=== PATIENT | male | born 1955 | race American Indian/Alaskan Native ===

== ENCOUNTER 2019-02-20 13:13 | Inpatient (IN) | payer MEDICAID ==
[2019-02-20] MEDS ORDERED: FAMOTIDINE 20 MG/2 ML INJ IV ONE (14:23)
[2019-02-20] MEDS ORDERED: SODIUM CHLORIDE 0.9% 500 ML 500 ML IV ONE (14:23)
--- NOTE | 2019-02-20 14:25 | Emergency Department Report ---
ED General Adult HPI - General Chief complaint: Syncope Stated complaint: SYNCOPY Time Seen by Provider: 02/20/19 14:12 Source: patient, EMS ( EMS documentation not available at time of chart dictation ), RN notes reviewed Mode of arrival: Stretcher Limitations: No Limitations - History of Present Illness Initial comments: Patient is a 63-year-old gentleman. The patient follows with Dr. Solomon at the [facility]. His past medical history includes hypertension, high cholesterol. He is currently on Risperdal for "sleep." He presents to the ER with EMS with a complaint of nontraumatic chest pain and syncope/loss of consciousness. Patient states that he was in his usual state of health earlier on today, when he was walking, felt pressure in his chest, lightheaded, and lost consciousness. The chest pressure did not radiate to the back, arms or neck. There is no vomiting or diaphoresis. Patient is not sure if he's taken aspirin within the past 7 days. No recent cardiac risk stratification that the patient is aware of. He denies DVT or pulmonary embolus risk factors. He denies headache and neck pain. He believes he's been compliant with his medications. To the best of his recollection, he is not had any new or differen t medications initiated. -: Sudden Location: chest Severity scale (0 -10): 0 Consistency: now resolved Improves with: none Worsens with: none - Related Data Home Medications Medication Instructions Recorded Confirmed Last Taken Losartan [Cozaar] 25 mg PO QDAY 02/20/19 02/20/19 02/18/19 Pravastatin [Pravachol] 20 mg PO QDAY 02/20/19 02/20/19 02/18/19 Sertraline [Zoloft] 25 mg PO QDAY 02/20/19 02/20/19 02/18/19 Tamsulosin [Flomax] 0.4 mg PO QHS 02/20/19 02/20/19 02/18/19 hydroCHLOROthiazide [HCTZ] 25 mg PO QDAY 02/20/19 02/20/19 02/18/19 raNITIdine HCl [Acid Barber Instructor] 150 mg PO BID 02/20/19 02/20/19 02/18/19 risperiDONE [RisperDAL] 1 mg PO QHS 02/20/19 02/20/19 02/18/19 Allergies Allergy/AdvReac Type Severity Reaction Status Date / Time No Known Allergies Allergy Unverified 03/12/13 19:44 ED Review of Systems ROS: Stated complaint: SYNCOPY Other details as noted in HPI Constitutional: malaise. denies: fever Eyes: denies: eye discharge ENT: denies: congestion Respiratory: denies: wheezing Cardiovascular: chest pain, syncope Gastrointestinal: denies: abdominal pain, vomiting, hematemesis, melena, hematochezia Genitourinary: denies: dysuria Musculoskeletal: denies: back pain Skin: denies: lesions Neurological: denies: weakness Psychiatric: denies: depression Hematological/Lymphatic: denies: easy bleeding ED Past Medical Hx - Past Medical History Previous Medical History?: Yes Hx Hypertension: Yes Hx CVA: No Hx Heart Attack/AMI: No Hx Congestive Heart Failure: No Hx Diabetes: No Hx Deep Vein Thrombosis: No Hx Pulmonary Embolism: No Hx GERD: No Hx Liver Disease: No Hx Renal Disease: No Hx Sickle Cell Disease: No Hx Arthritis: No Hx Headaches / Migraines: No Hx Seizures: No Hx Kidney Stones: No Hx Psychiatric Treatment: No Hx Asthma: No Hx COPD: No Hx Tuberculosis: No Hx Dementia: No Hx HIV: No Additional medical history: high cholesterol - Surgical History Past Surgical History?: Yes Hx Coronary Stent: No Hx Open Heart Surgery: No Hx Pacemaker: No Hx Internal Defibrillator: No Hx Cholecystectomy: No Hx Appendectomy: No Hx Breast Surgery: No Additional Surgical History: Abscess removed - Social History Smoking Status: Current Every Day Smoker Substance Use Type: Alcohol - Medications Home Medications: Home Medications Medication Instructions Recorded Confirmed Last Taken Type Losartan [Cozaar] 25 mg PO QDAY 02/20/19 02/20/19 02/18/19 History Pravastatin [Pravachol] 20 mg PO QDAY 02/20/19 02/20/19 02/18/19 History Sertraline [Zoloft] 25 mg PO QDAY 02/20/19 02/20/19 02/18/19 History Tamsulosin [Flomax] 0.4 mg PO QHS 02/20/19 02/20/19 02/18/19 History hydroCHLOROthiazide [HCTZ] 25 mg PO QDAY 02/20/19 02/20/19 02/18/19 History raNITIdine HCl [Acid Barber Instructor] 150 mg PO BID 02/20/19 02/20/19 02/18/19 History risperiDONE [RisperDAL] 1 mg PO QHS 02/20/19 02/20/19 02/18/19 History ED Physical Exam - General Limitations: No Limitations General appearance: alert, in no apparent distress - Head Head exam: Present: atraumatic, normocephalic - Eye Eye exam: Present: normal appearance, PERRL, EOMI, other (visual acuity intact to finger counting, color perception, reading at a close distance). Absent: nystagmus - ENT ENT exam: Present: mucous membranes dry, normal external ear exam - Neck Neck exam: Present: normal inspection, full ROM. Absent: tenderness, meningismus - Respiratory Respiratory exam: Present: normal lung sounds bilaterally. Absent: respiratory distress - Cardiovascular Cardiovascular Exam: Present: regular rate, normal rhythm, normal heart sounds. Absent: bradycardia, tachycardia, irregular rhythm, systolic murmur, diastolic murmur, rubs, gallop - GI/Abdominal GI/Abdominal exam: Present: soft. Absent: distended, tenderness, guarding, rebound, rigid, pulsatile mass - Rectal Rectal exam: Present: deferred - Extremities Exam Extremities exam: Present: normal inspection, full ROM, other (2+ pulses noted in the bilateral upper and lower extremities. There is no palpable cord. negative Homans sign. Muscular compartments are soft. The pelvis is stable.). Absent: pedal edema, joint swelling, calf tenderness - Back Exam Back exam: Present: normal inspection. Absent: tenderness, CVA tenderness (R), CVA tenderness (L), paraspinal tenderness, vertebral tenderness - Neurological Exam Neurological exam: Present: alert (there is no past-pointing. There is normal gait. There is no pronator drift. There is normal [id number].), oriented X3, other (there is no facial droop. The tongue is midline. The extraocular movements are intact bilaterally. Speaking in full sentences. Minimal elevation of the base of the tongue. There is 5 out of 5 strength in the bilateral upper and lower extremities, and sensation is intact to light touch in the bilateral upper and lower extremities. Appropriate insight.) - Psychiatric Psychiatric exam: Present: normal affect, normal mood - Skin Skin exam: Present: warm, dry, intact, normal color. Absent: rash ED Course Vital Signs 02/20/19 14:00 Temperature 97.4 F L Pulse Rate 72 Respiratory 13 Rate Blood Pressure 123/76 [Right] O2 Sat by Pulse 100 Oximetry - Reevaluation(s) Reevaluation #1: 02/20/19 15:49 Differential diagnosis, including but not limited to: Orthostasis, vagal event, structural cardiac disease, acute coronary syndrome, arrhythmia, intracranial hemorrhage Assessment and plan: 63-year-old gentleman with hypertension, high cholesterol, atherosclerotic disease noted on noncontrast CT scan of the brain, with unprovoked chest pain and syncope/loss of consciousness. He is not tachycardic, tachypneic or hypoxic, he has no DVT or pulmonary embolus risk factors, and he is low risk by well's criteria for pulmonary embolism. We will check CT scan of the brain to exclude intracranial hemorrhage, by history we do not suspect subarachnoid hemorrhage, screening laboratory studies, and we will reassess. The patient has no midline cervical spine tenderness at this time. He is clinically sober at this time.Patient is clinically sober at this time. The cervical spine is cleared through nexus and cymraes c spine rule Reevaluation #2: 02/20/19 18:08 CT scan chest shows small pulmonary emboli. There is no evidence of right heart strain. Lovenox is ordered. Hospital physician to admit patient. Reevaluation #3: 02/20/19 18:09 Transaminitis is reviewed and appreciated. There is no right upper quadrant tenderness. We will defer to inpatient team to further evaluate this. Reevaluation #4: 02/20/19 18:09 heart score 3 Reevaluation #5: 02/20/19 18:12 And appears quite comfortable. He is not in any acute distress at this time. Discussed laboratory findings and CT scan findings with patient and family. He is amenable to hospitalization. No contraindications to systemic anticoagulation 02/20/19 19:42 Case presented to Hospital nurse practitioner Kwabena Verdugo, working in conjunction with Dr. Figueredo, patient to be admitted to the medical service. ED Medical Decision Making - Lab Data Result diagrams: 02/20/19 15:03 02/20/19 15:03 Vital Signs (72 hours) 02/20/19 14:00 Temperature 97.4 F L Pulse Rate 72 Respiratory 13 Rate Blood Pressure 123/76 [Right] O2 Sat by Pulse 100 Oximetry Lab Results 02/20/19 02/20/19 Range/Units 15:03 15:03 WBC 4.1 L (4.5-11.0) K/mm3 RBC 3.00 L (3.65-5.03) M/mm3 Hgb 10.6 L (11.8-15.2) gm/dl Hct 31.0 L (35.5-45.6) % MCV 103 H (84-94) fl MCH 35 H (28-32) pg MCHC 34 (32-34) % RDW 17.8 H (13.2-15.2) % Plt Count 213 (140-440) K/mm3 PT 19.4 H (12.2-14.9) Sec. INR 1.61 H (0.87-1.13) Vital Signs 02/20/19 14:00 Temperature 97.4 F L Pulse Rate 72 Respiratory 13 Rate Blood Pressure 123/76 [Right] O2 Sat by Pulse 100 Oximetry Lab Results 02/20/19 02/20/19 02/20/19 Range/Units 15:03 15:03 15:03 WBC 4.1 L (4.5-11.0) K/mm3 RBC 3.00 L (3.65-5.03) M/mm3 Hgb 10.6 L (11.8-15.2) gm/dl Hct 31.0 L (35.5-45.6) % MCV 103 H (84-94) fl MCH 35 H (28-32) pg MCHC 34 (32-34) % RDW 17.8 H (13.2-15.2) % Plt Count 213 (140-440) K/mm3 PT 19.4 H (12.2-14.9) Sec. INR 1.61 H (0.87-1.13) Sodium 138 (137-145) mmol/L Potassium 4.7 (3.6-5.0) mmol/L Chloride 99.0 (98-107) mmol/L Carbon Dioxide 26 (22-30) mmol/L Anion Gap 18 mmol/L BUN 14 (9-20) mg/dL Creatinine 0.8 (0.8-1.5) mg/dL Estimated GFR > 60 ml/min BUN/Creatinine Ratio 18 % Glucose 118 H (75-100) mg/dL Calcium 8.1 L (8.4-10.2) mg/dL Magnesium 1.60 L (1.7-2.3) mg/dL Total Bilirubin 1.20 (0.1-1.2) mg/dL AST 257 H (5-40) units/L ALT 100 H (7-56) units/L Alkaline Phosphatase 121 (35-129) units/L Total Creatine Kinase 158 (55-170) units/L Troponin T < 0.010 (0.00-0.029) ng/mL Total Protein 5.2 L (6.3-8.2) g/dL Albumin 3.0 L (3.9-5) g/dL Albumin/Globulin Ratio 1.4 % TSH (0.270-4.200) mlU/mL Salicylates (2.8-20.0) mg/dL Acetaminophen (10.0-30.0) ug/mL Plasma/Serum Alcohol (0-0.07) % 02/20/19 02/20/19 02/20/19 Range/Units 15:03 15:03 15:03 WBC (4.5-11.0) K/mm3 RBC (3.65-5.03) M/mm3 Hgb (11.8-15.2) gm/dl Hct (35.5-45.6) % MCV (84-94) fl MCH (28-32) pg MCHC (32-34) % RDW (13.2-15.2) % Plt Count (140-440) K/mm3 PT (12.2-14.9) Sec. INR (0.87-1.13) Sodium (137-145) mmol/L Potassium (3.6-5.0) mmol/L Chloride (98-107) mmol/L Carbon Dioxide (22-30) mmol/L Anion Gap mmol/L BUN (9-20) mg/dL Creatinine (0.8-1.5) mg/dL Estimated GFR ml/min BUN/Creatinine Ratio % Glucose (75-100) mg/dL Calcium (8.4-10.2) mg/dL Magnesium (1.7-2.3) mg/dL Total Bilirubin (0.1-1.2) mg/dL AST (5-40) units/L ALT (7-56) units/L Alkaline Phosphatase (35-129) units/L Total Creatine Kinase (55-170) units/L Troponin T (0.00-0.029) ng/mL Total Protein (6.3-8.2) g/dL Albumin (3.9-5) g/dL Albumin/Globulin Ratio % TSH 0.546 (0.270-4.200) mlU/mL Salicylates 1.5 L (2.8-20.0) mg/dL Acetaminophen < 5.0 L (10.0-30.0) ug/mL Plasma/Serum Alcohol (0-0.07) % 02/20/19 Range/Units 15:03 WBC (4.5-11.0) K/mm3 RBC (3.65-5.03) M/mm3 Hgb (11.8-15.2) gm/dl Hct (35.5-45.6) % MCV (84-94) fl MCH (28-32) pg MCHC (32-34) % RDW (13.2-15.2) % Plt Count (140-440) K/mm3 PT (12.2-14.9) Sec. INR (0.87-1.13) Sodium (137-145) mmol/L Potassium (3.6-5.0) mmol/L Chloride (98-107) mmol/L Carbon Dioxide (22-30) mmol/L Anion Gap mmol/L BUN (9-20) mg/dL Creatinine (0.8-1.5) mg/dL Estimated GFR ml/min BUN/Creatinine Ratio % Glucose (75-100) mg/dL Calcium (8.4-10.2) mg/dL Magnesium (1.7-2.3) mg/dL Total Bilirubin (0.1-1.2) mg/dL AST (5-40) units/L ALT (7-56) units/L Alkaline Phosphatase (35-129) units/L Total Creatine Kinase (55-170) units/L Troponin T (0.00-0.029) ng/mL Total Protein (6.3-8.2) g/dL Albumin (3.9-5) g/dL Albumin/Globulin Ratio % TSH (0.270-4.200) mlU/mL Salicylates (2.8-20.0) mg/dL Acetaminophen (10.0-30.0) ug/mL Plasma/Serum Alcohol 0.04 (0-0.07) % - EKG Data -: EKG Interpreted by Nv EKG shows normal: sinus rhythm Rate: normal - EKG Data 02/20/19 15:50 There is no prior EKG available for comparison. The EKG shows a sinus rhythm, 74 bpm, normal axis, QTC is 426 ms, there is left ventricular hypertrophy, there is no ST elevation myocardial infarction. There is low voltage in the inferior leads. There is no prior for comparison, the EKG is not consistent with STEMI - Radiology Data Radiology results: report reviewed, image reviewed Print Report Referring Physician: JEAN-CLAUDE ALEXANDRE Patient Name: ROB ENGLISH Date of : 1955 Sex: Male Report Date: 2019-02-20 Report Status: Finalized Findings [facility] [address] [place] [address] Cat Scan Report Signed Patient: ROB ENGLISH MR#: [id number] : 1955 Acct:[id number] Age/Sex: 63 / M ADM Date: 02/20/19 Loc: ED Attending Dr: Ordering Physician: JEAN-CLAUDE ALEXANDRE MD Date of Service: 02/20/19 Procedure(s): CT head/brain wo con Accession Number(s): [id number] cc: JEAN-CLAUDE ALEXANDRE MD CT HEAD WITHOUT CONTRAST INDICATION / CLINICAL INFORMATION: syncope. TECHNIQUE: All CT scans at this location are performed using CT dose reduction for ALARA by means of automated exposure control. COMPARISON: None available. FINDINGS: HEMORRHAGE: No evidence of intracranial hemorrhage or extra-axial fluid collection. EXTRA-AXIAL SPACES: Cortical sulci, sylvian fissures and basilar cisterns have an unremarkable appearance. VENTRICULAR SYSTEM: The ventricular system is of normal size and configuration. CEREBRAL PARENCHYMA: Mild deep and periventricular white matter lucency is noted likely a manifestation of early microvascular ischemic change. Physiological calcifications are seen in the left basal ganglia region. MIDLINE SHIFT OR HERNIATION: There is no mass effect. CEREBELLUM / BRAINSTEM: Brainstem and cerebellum have an unremarkable appearance. INTRACRANIAL VESSELS: Moderately calcified atherosclerotic plaque is seen along the course of the cavernous segments of both internal carotid arteries. This extends up into the supraclinoid region. ORBITS: visualized portions of the orbits have an unremarkable appearance. SOFT TISSUES of HEAD: No significant abnormality. CALVARIUM: Evaluation of bone windows reveals no abnormalities. PARANASAL SINUSES / MASTOID AIR CELLS: Paranasal sinuses are free from inflammatory mucosal disease. Mastoid air cells are normally pneumatized. IMPRESSION: 1. Calcified atherosclerotic plaque is demonstrated along the cavernous segments of both internal carotid arteries. 2. Mild white matter lucency likely secondary to microvascular ischemic change. 3. No acute intracranial abnormality identified on head CT without contrast. Signer Name: Mohit Leahy MD Signed: 02/20/2019 3:19 PM Workstation Name: [id number] Transcribed By: Dictated By: Mohit Leahy MD Electronically Authenticated By: Mohit Leahy MD Signed Date/Time: 02/20/19 1519 Print Report Referring Physician: JEAN-CLAUDE ALEXANDRE Patient Name: ROB ENGLISH Date of : 1955 Sex: Male Report Date: 2019-02-20 Report Status: Finalized Findings [address] [address] XRay Report Signed Patient: ROB ENGLISH MR#: [id number] : 1955 Acct:[id number] Age/Sex: 63 / M ADM Date: 02/20/19 Loc: ED Attending Dr: Ordering Physician: JEAN-CLAUDE ALEXANDRE MD Date of Service: 02/20/19 Procedure(s): XR chest 1V ap Accession Number(s): [id number] cc: JEAN-CLAUDE ALEXANDRE MD Fluoro Time In Minutes: CHEST 1 VIEW 02/20/2019 2:23 PM INDICATION / CLINICAL INFORMATION: Chest pain. COMPARISON: 2 views of the chest from 05/31/2014. FINDINGS: SUPPORT DEVICES: None. HEART / MEDIASTINUM: No significant abnormality. LUNGS / PLEURA: No significant pulmonary or pleural abnormality. No pneumothorax. ADDITIONAL FINDINGS: No significant additional findings. IMPRESSION: 1. No acute abnormality of the chest. Signer Name: Sriram Mccarthy MD Signed: 02/20/2019 3:35 PM Workstation Name: [id number] Transcribed By: [place] Dictated By: Sriram Mccarthy MD Electronically Authenticated By: Sriram Mccarthy MD Signed Date/Time: 02/20/19 1535 DD/ 1535 Print Report Referring Physician: JEAN-CLAUDE ALEXANDRE Patient Name: ROB ENGLISH Date of : 1955 Sex: Male Report Date: 2019-02-20 Report Status: Finalized Findings [facility] [address] [place] [address] Cat Scan Report Signed Patient: ROB ENGLISH MR#: [id number] : 1955 Acct:[id number] Age/Sex: 63 / M ADM Date: 02/20/19 Loc: ED Attending Dr: Ordering Physician: JEAN-CLAUDE ALEXANDRE MD Date of Service: 02/20/19 Procedure(s): CT angio chest Accession Number(s): [id number] cc: JEAN-CLAUDE ALEXANDRE MD CT angio chest INDICATION / CLINICAL INFORMATION: cp syncope + d dimer. TECHNIQUE: Axial CT images were obtained after injection of Omnipaque 350, 80 cc IV contrast using CTA protocol. 3 plane MIP / 3D reconstructions were produced. All CT scans at this location are performed using CT dose reduction for ALARA by means of automated exposure control. COMPARISON: None available. FINDINGS: Small peripheral bilateral pulmonary emboli at the lower lobes a credit representative finding is series 3, image 271 at the left lower lobe. Negative for aneurysm or dissection. Mild atelectasis versus infarct is seen dependently at the right lower lobe. Negative for suspicious lung mass, significant infiltrate or pleural fluid. No mediastinal mass or adenopathy. Imaging of the upper abdomen demonstrates a fatty liver. IMPRESSION: 1. Small bilateral pulmonary emboli. 2. Mild atelectasis versus infarct right lower lobe. CRITICAL RESULT: Time of Discovery: 5:04 PM. Time of Communication: 506 PM. Licensed Practitioner Receiving Report: Dr. Alexandre Read Back Performed: Yes. Signer Name: Martell Madera MD Signed: 02/20/2019 6:11 PM Workstation Name: [id number] Transcribed By: ES Dictated By: Martell Madera MD Electronically Authenticated By: Martell Madera MD Signed Date/Time: 02/20/19 6851 DD/ 484 Critical care attestation.: If time is entered above; I have spent that time in minutes in the direct care of this critically ill patient, excluding procedure time. ED Disposition Clinical Impression: Acute chest pain, Syncope, Acute pulmonary embolism Disposition: OP ADMIT IP TO THIS HOSP Is pt being admited?: Yes Does the pt Need Aspirin: No Condition: Stable Instructions: Chest Pain (ED), Syncope (ED) Referrals: PRIMARY CARE, [Primary Care Provider] - 3-5 Days
--- NOTE | 2019-02-20 15:24 | Cat Scan Report ---
CT HEAD WITHOUT CONTRAST INDICATION / CLINICAL INFORMATION: syncope. TECHNIQUE: All CT scans at this location are performed using CT dose reduction for ALARA by means of automated e xposure control. COMPARISON: None available. FINDINGS: HEMORRHAGE: No evidence of intracranial hemorrhage or extra-axial fluid collection. EXTRA-AXIAL SPACES: Cortical sulci, sylvian fissures and basilar cisterns have an unremarkable appear ance. VENTRICULAR SYSTEM: The ventricular system is of normal size and configuration. CEREBRAL PARENCHYMA: Mild deep and periventricular white matter lucency is noted likely a manifestati on of early microvascular ischemic change. Physiological calcifications are seen in the left basal ga nglia region. MIDLINE SHIFT OR HERNIATION: There is no mass effect. CEREBELLUM / BRAINSTEM: Brainstem and cerebellum have an unremarkable appearance. INTRACRANIAL VESSELS: Moderately calcified atherosclerotic plaque is seen along the course of the cav ernous segments of both internal carotid arteries. This extends up into the supraclinoid region. ORBITS: visualized portions of the orbits have an unremarkable appearance. SOFT TISSUES of HEAD: No significant abnormality. CALVARIUM: Evaluation of bone windows reveals no abnormalities. PARANASAL SINUSES / MASTOID AIR CELLS: Paranasal sinuses are free from inflammatory mucosal disease. Mastoid air cells are normally pneumatized. IMPRESSION: 1. Calcified atherosclerotic plaque is demonstrated along the cavernous segments of both internal car otid arteries. 2. Mild white matter lucency likely secondary to microvascular ischemic change. 3. No acute intracranial abnormality identified on head CT without contrast. Signer Name: Mohit Leahy MD Signed: 02/20/2019 3:19 PM Workstation Name: [id number]
[2019-02-20 15:34] LABS: Hemoglobin 10.6 gm/dl (11.8-15.2); Mean Corpuscular HGB Conc 34 % (32-34); Mean Corpuscular Volume 103 fl (84-94); Platelet Count 213 K/mm3 (140-440); Red Cell Distribution Width 17.8 % (13.2-15.2)
--- NOTE | 2019-02-20 15:39 | XRay Report ---
CHEST 1 VIEW 02/20/2019 2:23 PM INDICATION / CLINICAL INFORMATION: Chest pain. COMPARISON: 2 views of the chest from 05/31/2014. FINDINGS: SUPPORT DEVICES: None. HEART / MEDIASTINUM: No significant abnormality. LUNGS / PLEURA: No significant pulmonary or pleural abnormality. No pneumothorax. ADDITIONAL FINDINGS: No significant additional findings. IMPRESSION: 1. No acute abnormality of the chest. Signer Name: Sriram Mccarthy MD Signed: 02/20/2019 3:35 PM Workstation Name: [id number]
[2019-02-20 15:47] LABS: INR 1.61 (0.87-1.13)
[2019-02-20 15:58] LABS: Alanine Aminotransferase 100 units/L (7-56); BUN/Creatinine Ratio 18; Blood Urea Nitrogen 14 mg/dL (9-20); Calcium 8.1 mg/dL (8.4-10.2); Hemolysis Index 10
[2019-02-20] MEDS ORDERED: MAGNESIUM SULFATE 2 GM/50 ML BAG IV ONE (16:16)
[2019-02-20 18:00] LABS: Bilirubin,Urine NEG (Negative); Blood,Urine NEG (Negative); Color,Urine Yellow (Yellow); Protein,Urine <15 mg/dL mg/dL (Negative); RBC,Urine < 1.0 /HPF (0.0-6.0)
[2019-02-20] MEDS ORDERED: CALCIUM GLUCONATE 2,000 MG in SODIUM CHLORIDE 0.9% 100 ML IV ONE (18:00)
[2019-02-20] MEDS ORDERED: ENOXAPARIN 100 MG/1 ML INJ SUB-Q STA (18:07)
[2019-02-20 18:09] LABS: Amphetamine Screen,Urine PRESUMPTIVE NEGATIVE; Benzodiazepines Screen,Urine PRESUMPTIVE NEGATIVE; Cannabinoid Screen,Urine PRESUMPTIVE NEGATIVE; Cocaine Screen,Urine PRESUMPTIVE NEGATIVE; Methadone Screen,Urine PRESUMPTIVE NEGATIVE; Opiate Screen,Urine PRESUMPTIVE NEGATIVE
--- NOTE | 2019-02-20 18:16 | Cat Scan Report ---
CT angio chest INDICATION / CLINICAL INFORMATION: cp syncope + d dimer. TECHNIQUE: Axial CT images were obtained after injection of Omnipaque 350, 80 cc IV contrast using CTA protocol. 3 plane MIP / 3D reconstructions were produced. All CT scans at this location are performed using CT dose reduction for ALARA by means of automated exposure control. COMPARISON: None available. 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 Negative for aneurysm or dissection. Mild atelectasis versus infarc t is seen dependently at the right lower lobe. Negative for suspicious lung mass, significant infiltr ate or pleural fluid. No mediastinal mass or adenopathy. Imaging of the upper abdomen demonstrates a fatty liver. IMPRESSION: 1. Small bilateral pulmonary emboli. 2. Mild atelectasis versus infarct right lower lobe. CRITICAL RESULT: Time of Discovery: 5:04 PM. Time of Communication: 506 PM. Licensed Practitioner Receiving Report: Dr. Alexandre Read Back Performed: Yes. Signer Name: Martell Madera MD Signed: 02/20/2019 6:11 PM Workstation Name: [id number]
[2019-02-20] MEDS ORDERED: ONDANSETRON 4 MG/2 ML INJ IV PRN (19:47)
[2019-02-20] MEDS ORDERED: ACETAMINOPHEN 325 MG TAB PO PRN (19:47)
[2019-02-20] MEDS ORDERED: ALBUTEROL 2.5 MG/3 ML NEBU IH PRN (19:47)
[2019-02-20] MEDS ORDERED: MORPHINE 2 MG/1 ML INJ IV PRN (19:51)
[2019-02-20] MEDS ORDERED: LORazepam 2 MG TAB PO PRN ×2 (20:00)
[2019-02-20 21:00] LABS: Chol/HDL Ratio 6.38 %; HDL Cholesterol 31 mg/dL (40-59); LDL Cholesterol,Direct TNR mg/dL (50-130)
--- NOTE | 2019-02-20 21:44 | History and Physical Report ---
<TAWANNA CAMPBELL - Last Filed: 02/20/19 21:39> History of Present Illness Date of examination: 02/20/19 Date of admission: 02/20/2019 Chief complaint: chest and syncope History of present illness: 63-year-old -[place] male who is an ongoing smoker with history of hypertension, HLD, and BPH presents to [facility] ED via EMS with complaints of chest pain and syncopal episode. Pt states that earlier today while walking he felt a sharp pain in the center of his chest, felt lightheaded followed by lost consciousness. EMS was called. Pt regained consciousness before EMS's arrival. He describes his chest pain and sharp and rates it 7/10. The pain was non- radiating. The pain has since resolved. He denies diaphoresis, nausea, emesis, head injury/trauma. He denies cardiac history or previous cardiac work up. Past History Past Medical History: hypertension, hyperlipidemia Past Surgical History: Other (Abscess removed) Social history: lives with family, smoking (current everday smoker), alcohol abuse Family history: no significant family history Medications and Allergies Allergies Allergy/AdvReac Type Severity Reaction Status Date / Time No Known Allergies Allergy Unverified 03/12/13 19:44 Home Medications Medication Instructions Recorded Confirmed Last Taken Type Losartan [Cozaar] 25 mg PO QDAY 02/20/19 02/20/19 02/18/19 History Pravastatin [Pravachol] 20 mg PO QDAY 02/20/19 02/20/19 02/18/19 History Sertraline [Zoloft] 25 mg PO QDAY 02/20/19 02/20/19 02/18/19 History Tamsulosin [Flomax] 0.4 mg PO QHS 02/20/19 02/20/19 02/18/19 History hydroCHLOROthiazide [HCTZ] 25 mg PO QDAY 02/20/19 02/20/19 02/18/19 History raNITIdine HCl [Acid Track Oiler] 150 mg PO BID 02/20/19 02/20/19 02/18/19 History risperiDONE [RisperDAL] 1 mg PO QHS 02/20/19 02/20/19 02/18/19 History Active Meds: Active Medications Acetaminophen (Tylenol) 650 mg PO Q4H PRN PRN Reason: Pain MILD(1-3)/Fever >100.5/FLEMING Albuterol (Proventil) 2.5 mg IH Q3HRT PRN PRN Reason: Shortness Of Breath Atorvastatin Calcium (Lipitor) 40 mg PO QHS [facility] Docusate Sodium (Colace) 100 mg PO BID [facility] Enoxaparin Sodium (Enoxaparin) 60 mg SUB-Q Q12HR [facility] Folic Acid (Folvite) 1 mg PO QDAY [facility] Hydrochlorothiazide (Hctz) 25 mg PO QDAY [facility] Lorazepam (Ativan) 2 mg PO Q1H PRN PRN Reason: CIWA-Ar 8-15 Lorazepam (Ativan) 4 mg PO Q1H PRN PRN Reason: CIWA-Ar 16-25 Losartan Potassium (Cozaar) 25 mg PO QDAY [facility] Morphine Sulfate (Morphine) 2 mg IV Q4H PRN PRN Reason: Pain, Moderate (4-6) Nicotine (Habitrol) 14 mg TD QDAY [facility] Ondansetron HCl (Zofran) 4 mg IV Q8H PRN PRN Reason: Nausea And Vomiting Risperidone (Risperdal) 1 mg PO QHS [facility] Sertraline HCl (Zoloft) 25 mg PO QDAY [facility] Sodium Chloride (Sodium Chloride Flush Syringe 10 Ml) 10 ml IV BID [facility] Sodium Chloride (Sodium Chloride Flush Syringe 10 Ml) 10 ml IV PRN PRN PRN Reason: LINE FLUSH Tamsulosin HCl (Flomax) 0.4 mg PO QHS [facility] Thiamine HCl (Vitamin B-1) 100 mg PO QDAY [facility] Review of Systems All systems: negative Cardiovascular: chest pain, shortness of breath Neurological: syncope Exam - Physical Exam Narrative exam: General appearance: Present: No acute distress, alert and oriented x3,well developed, , older adult male - EENT Eyes: Present: PERRL, EOM intact ENT: hearing intact - Neck Neck: Present: supple, normal ROM - Respiratory Respiratory effort: Non-labored Respiratory: bilateral: CTA with diminished bases bilaterally - Cardiovascular Heart rate:74 (bpm) Rhythm:SR Heart Sounds: Present: S1, S2. - Extremities Extremities: no ischemia, pulses intact - Peripheral Assessment Peripheral Pulses: within normal limits - Abdominal General gastrointestinal: soft, non-tender, normal bowel sounds, - Integumentary Integumentary: Present: warm, dry - Musculoskeletal Musculoskeletal: able to move all extremities -Neurological Neurological: CN II-XII grossly intact - Psychiatric Psychiatric: cooperative - Constitutional Vitals: Temp Pulse Resp BP Pulse Ox 97.4 F L 76 14 185/96 100 02/20/19 14:00 02/20/19 21:00 02/20/19 21:21 02/20/19 21:21 02/20/19 21:21 Results - Labs CBC & Chem 7: 02/20/19 15:03 02/20/19 15:03 Labs: Laboratory Last Values WBC 4.1 K/mm3 (4.5-11.0) L 02/20/19 15:03 RBC 3.00 M/mm3 (3.65-5.03) L 02/20/19 15:03 Hgb 10.6 gm/dl (11.8-15.2) L 02/20/19 15:03 Hct 31.0 % (35.5-45.6) L 02/20/19 15:03 MCV 103 fl (84-94) H 02/20/19 15:03 MCH 35 pg (28-32) H 02/20/19 15:03 MCHC 34 % (32-34) 02/20/19 15:03 RDW 17.8 % (13.2-15.2) H 02/20/19 15:03 Plt Count 213 K/mm3 (140-440) 02/20/19 15:03 PT 19.4 Sec. (12.2-14.9) H 02/20/19 15:03 INR 1.61 (0.87-1.13) H 02/20/19 15:03 D-Dimer 7327.05 ng/mlDDU (0-234) H 02/20/19 15:03 Sodium 138 mmol/L (137-145) 02/20/19 15:03 Potassium 4.7 mmol/L (3.6-5.0) 02/20/19 15:03 Chloride 99.0 mmol/L (98-107) 02/20/19 15:03 Carbon Dioxide 26 mmol/L (22-30) 02/20/19 15:03 Anion Gap 18 mmol/L 02/20/19 15:03 BUN 14 mg/dL (9-20) 02/20/19 15:03 Creatinine 0.8 mg/dL (0.8-1.5) 02/20/19 15:03 Estimated GFR > 60 ml/min 02/20/19 15:03 BUN/Creatinine Ratio 18 % 02/20/19 15:03 Glucose 118 mg/dL (75-100) H 02/20/19 15:03 Calcium 8.1 mg/dL (8.4-10.2) L 02/20/19 15:03 Magnesium 1.60 mg/dL (1.7-2.3) L 02/20/19 15:03 Total Bilirubin 1.20 mg/dL (0.1-1.2) 02/20/19 15:03 AST 257 units/L (5-40) H 02/20/19 15:03 ALT 100 units/L (7-56) H 02/20/19 15:03 Alkaline Phosphatase 121 units/L (35-129) 02/20/19 15:03 Total Creatine Kinase 158 units/L (55-170) 02/20/19 15:03 Troponin T < 0.010 ng/mL (0.00-0.029) 02/20/19 18:08 Total Protein 5.2 g/dL (6.3-8.2) L 02/20/19 15:03 Albumin 3.0 g/dL (3.9-5) L 02/20/19 15:03 Albumin/Globulin Ratio 1.4 % 02/20/19 15:03 Triglycerides 549 mg/dL (2-149) H 02/20/19 20:18 Cholesterol 198 mg/dL (50-199) 02/20/19 20:18 LDL Cholesterol Direct TNR 02/20/19 20:18 HDL Cholesterol 31 mg/dL (40-59) L 02/20/19 20:18 Cholesterol/HDL Ratio 6.38 % 02/20/19 20:18 Lipase 21 units/L (13-60) 02/20/19 20:18 TSH 0.546 mlU/mL (0.270-4.200) 02/20/19 15:03 Urine Color Yellow (Yellow) 02/20/19 17:17 Urine Turbidity Clear (Clear) 02/20/19 17:17 Urine pH 6.0 (5.0-7.0) 02/20/19 17:17 Ur Specific [place] 1.016 (1.003-1.030) 02/20/19 17:17 Urine Protein <15 mg/dl mg/dL (Negative) 02/20/19 17:17 Urine Glucose (UA) Neg mg/dL (Negative) 02/20/19 17:17 Urine Ketones Neg mg/dL (Negative) 02/20/19 17:17 Urine Blood Neg (Negative) 02/20/19 17:17 Urine Nitrite Neg (Negative) 02/20/19 17:17 Urine Bilirubin Neg (Negative) 02/20/19 17:17 Urine Urobilinogen 4.0 mg/dL (<2.0) 02/20/19 17:17 Ur Leukocyte Esterase Neg (Negative) 02/20/19 17:17 Urine WBC (Auto) 1.0 /HPF (0.0-6.0) 02/20/19 17:17 Urine RBC (Auto) < 1.0 /HPF (0.0-6.0) 02/20/19 17:17 U Epithel Cells (Auto) < 1.0 /HPF (0-13.0) 02/20/19 17:17 Salicylates 1.5 mg/dL (2.8-20.0) L 02/20/19 15:03 Urine Opiates Screen Presumptive negative 02/20/19 17:17 Urine Methadone Screen Presumptive negative 02/20/19 17:17 Acetaminophen < 5.0 ug/mL (10.0-30.0) L 02/20/19 15:03 Ur Barbiturates Screen Presumptive negative 02/20/19 17:17 Ur Phencyclidine Scrn Presumptive negative 02/20/19 17:17 Ur Amphetamines Screen Presumptive negative 02/20/19 17:17 U Benzodiazepines Scrn Presumptive negative 02/20/19 17:17 Urine Cocaine Screen Presumptive negative 02/20/19 17:17 U Marijuana (THC) Screen Presumptive negative 02/20/19 17:17 Drugs of Abuse Note Disclamer 02/20/19 17:17 Plasma/Serum Alcohol 0.04 % (0-0.07) 02/20/19 15:03 - Imaging and Cardiology Imaging and Cardiology: CT angio Chest: FINDINGS: Small peripheral bilateral pulmonary emboli at the lower lobes a technical sales representative finding is series 3, image 271 at the left lower lobe. Negative for aneurysm or dissection. Mild atelectasis versus infarct is seen dependently at the right lower lobe. Negative for suspicious lung mass, significant infiltrate or pleural fluid. No mediastinal mass or adenopathy. Imaging of the upper abdomen demonstrates a fatty liver. IMPRESSION: 1. Small bilateral pulmonary emboli. 2. Mild atelectasis versus infarct right lower lobe. CT Head: FINDINGS: HEMORRHAGE: No evidence of intracranial hemorrhage or extra-axial fluid collection. EXTRA-AXIAL SPACES: Cortical sulci, sylvian fissures and basilar cisterns have an unremarkable appearance. VENTRICULAR SYSTEM: The ventricular system is of normal size and configuration. CEREBRAL PARENCHYMA: Mild deep and periventricular white matter lucency is noted likely a manifestation of early microvascular ischemic change. Physiological calci fications are seen in the left basal ganglia region. MIDLINE SHIFT OR HERNIATION: There is no mass effect. CEREBELLUM / BRAINSTEM: Brainstem and cerebellum have an unremarkable appearance. INTRACRANIAL VESSELS: Moderately calcified atherosclerotic plaque is seen along the course of the cavernous segments of both internal carotid arteries. This extends up into the supraclinoid region. ORBITS: visualized portions of the orbits have an unremarkable appearance. SOFT TISSUES of HEAD: No significant abnormality. CALVARIUM: Evaluation of bone windows reveals no abnormalities. PARANASAL SINUSES / MASTOID AIR CELLS: Paranasal sinuses are free from inflammatory mucosal disease. Mastoid air cells are normally pneumatized. IMPRESSION: 1. Calcified atherosclerotic plaque is demonstrated along the cavernous segments of both internal carotid arteries. 2. Mild white matter lucency likely secondary to microvascular ischemic change. 3. No acute intracranial abnormality identified on head CT without contrast. CXR: FINDINGS: SUPPORT DEVICES: None. HEART / MEDIASTINUM: No significant abnormality. LUNGS / PLEURA: No significant pulmonary or pleural abnormality. No pneumothorax . ADDITIONAL FINDINGS: No significant additional findings. IMPRESSION: 1. No acute abnormality of the chest. Assessment and Plan Assessment and plan: 63-year-old -[place] male who is an ongoing smoker with history of hypertension, HLD, and BPH presents to [facility] ED via EMS with complaints of chest pain and syncopal episode. Small Peripheral bilateral Pulmonary Emboli -At the lower lobes; Seen on today's CT angio Chest -D-Dimer elevated at 7327 -Start on Lovenox 1mg/kg BID -Hematology consulted -Pulmonary consulted -Cardiology consulted Acute atypical Chest Pain -Likely secondary to bilateral PE -Initiate chest pain protocol -Continuous telemetry monitoring -Continue supportive care -Pain mgmt -Troponin neg x2 -EKG unrevealing for acute ischemic abnormalities -CXR negative -On Statin -Echo pending -Cardiology consulted Syncope -Syncopal episode x1 - CT head showed: 1. Calcified atherosclerotic plaque is demonstrated along the cavernous segments of both internal carotid arteries. 2. Mild white matter lucency likely secondary to microvascular ischemic change. -Neuro checks -Neurology consulted Anemia -Hemoglobin on admission 10.6 -No s/s of active bleeding -Continue to monitor hemoglobin -Transfuse as needed Transaminitis -Continue to monitor for now -May consider GI consult if no improvement EtOH Abuse -Last drink 3 days ago -Serum alcohol 0.04 -Initiate CIWA protocol -Start Thiamine and Folic Acid -Counseled for cessation abuse Tobacco abuse -Current every day smoker -Counseled for cessation -Nicotine patch when necessary Mild to moderate malnutrition -Albumin 3.0 -BMI 16.5 -Start dietary supplements -Dietitian consulted DVT PPX -on Lovenox Advance Directives: No VTE prophylaxis?: Chemical Plan of care discussed with patient/family: Yes <BARBARA RIVAS - Last Filed: 02/21/19 04:38> History of Present Illness Date of admission: 02/20/19 19:47 Medications and Allergies Active Meds: Active Medications Acetaminophen (Tylenol) 650 mg PO Q4H PRN PRN Reason: Pain MILD(1-3)/Fever >100.5/FLEMING Albuterol (Proventil) 2.5 mg IH Q3HRT PRN PRN Reason: Shortness Of Breath Atorvastatin Calcium (Lipitor) 40 mg PO QHS [facility] Last Admin: 02/20/19 23:02 Dose: 40 mg Documented by: Docusate Sodium (Colace) 100 mg PO BID [facility] Last Admin: 02/20/19 23:02 Dose: 100 mg Documented by: Enoxaparin Sodium (Enoxaparin) 60 mg SUB-Q Q12HR [facility] Folic Acid (Folvite) 1 mg PO QDAY [facility] Hydrochlorothiazide (Hctz) 25 mg PO QDAY [facility] Lorazepam (Ativan) 2 mg PO Q1H PRN PRN Reason: CIWA-Ar 8-15 Lorazepam (Ativan) 4 mg PO Q1H PRN PRN Reason: CIWA-Ar 16-25 Losartan Potassium (Cozaar) 25 mg PO QDAY [facility] Morphine Sulfate (Morphine) 2 mg IV Q4H PRN PRN Reason: Pain, Moderate (4-6) Nicotine (Habitrol) 14 mg TD QDAY [facility] Last Admin: 02/20/19 23:02 Dose: 14 mg Documented by: Ondansetron HCl (Zofran) 4 mg IV Q8H PRN PRN Reason: Nausea And Vomiting Risperidone (Risperdal) 1 mg PO QHS [facility] Last Admin: 02/20/19 23:02 Dose: 1 mg Documented by: Sertraline HCl (Zoloft) 25 mg PO QDAY [facility] Sodium Chloride (Sodium Chloride Flush Syringe 10 Ml) 10 ml IV BID [facility] Last Admin: 02/20/19 23:11 Dose: 10 ml Documented by: Sodium Chloride (Sodium Chloride Flush Syringe 10 Ml) 10 ml IV PRN PRN PRN Reason: LINE FLUSH Tamsulosin HCl (Flomax) 0.4 mg PO QHS [facility] Last Admin: 02/20/19 23:01 Dose: 0.4 mg Documented by: Thiamine HCl (Vitamin B-1) 100 mg PO QDAY [facility] Exam - Constitutional Vitals: Temp Pulse Resp BP Pulse Ox 98.1 F 78 16 156/98 96 02/20/19 22:47 02/20/19 22:47 02/20/19 22:47 02/20/19 22:47 02/20/19 22:47 Results - Labs CBC & Chem 7: 02/20/19 15:03 02/20/19 15:03 Labs: Laboratory Last Values WBC 4.1 K/mm3 (4.5-11.0) L 02/20/19 15:03 RBC 3.00 M/mm3 (3.65-5.03) L 02/20/19 15:03 Hgb 10.6 gm/dl (11.8-15.2) L 02/20/19 15:03 Hct 31.0 % (35.5-45.6) L 02/20/19 15:03 MCV 103 fl (84-94) H 02/20/19 15:03 MCH 35 pg (28-32) H 02/20/19 15:03 MCHC 34 % (32-34) 02/20/19 15:03 RDW 17.8 % (13.2-15.2) H 02/20/19 15:03 Plt Count 213 K/mm3 (140-440) 02/20/19 15:03 PT 19.4 Sec. (12.2-14.9) H 02/20/19 15:03 INR 1.61 (0.87-1.13) H 02/20/19 15:03 D-Dimer 7327.05 ng/mlDDU (0-234) H 02/20/19 15:03 Sodium 138 mmol/L (137-145) 02/20/19 15:03 Potassium 4.7 mmol/L (3.6-5.0) 02/20/19 15:03 Chloride 99.0 mmol/L (98-107) 02/20/19 15:03 Carbon Dioxide 26 mmol/L (22-30) 02/20/19 15:03 Anion Gap 18 mmol/L 02/20/19 15:03 BUN 14 mg/dL (9-20) 02/20/19 15:03 Creatinine 0.8 mg/dL (0.8-1.5) 02/20/19 15:03 Estimated GFR > 60 ml/min 02/20/19 15:03 BUN/Creatinine Ratio 18 % 02/20/19 15:03 Glucose 118 mg/dL (75-100) H 02/20/19 15:03 Calcium 8.1 mg/dL (8.4-10.2) L 02/20/19 15:03 Magnesium 1.60 mg/dL (1.7-2.3) L 02/20/19 15:03 Total Bilirubin 1.20 mg/dL (0.1-1.2) 02/20/19 15:03 AST 257 units/L (5-40) H 02/20/19 15:03 ALT 100 units/L (7-56) H 02/20/19 15:03 Alkaline Phosphatase 121 units/L (35-129) 02/20/19 15:03 Total Creatine Kinase 158 units/L (55-170) 02/20/19 15:03 Troponin T < 0.010 ng/mL (0.00-0.029) 02/20/19 18:08 Total Protein 5.2 g/dL (6.3-8.2) L 02/20/19 15:03 Albumin 3.0 g/dL (3.9-5) L 02/20/19 15:03 Albumin/Globulin Ratio 1.4 % 02/20/19 15:03 Triglycerides 549 mg/dL (2-149) H 02/20/19 20:18 Cholesterol 198 mg/dL (50-199) 02/20/19 20:18 LDL Cholesterol Direct TNR 02/20/19 20:18 HDL Cholesterol 31 mg/dL (40-59) L 02/20/19 20:18 Cholesterol/HDL Ratio 6.38 % 02/20/19 20:18 Lipase 21 units/L (13-60) 02/20/19 20:18 TSH 0.546 mlU/mL (0.270-4.200) 02/20/19 15:03 Urine Color Yellow (Yellow) 02/20/19 17:17 Urine Turbidity Clear (Clear) 02/20/19 17:17 Urine pH 6.0 (5.0-7.0) 02/20/19 17:17 Ur Specific [place] 1.016 (1.003-1.030) 02/20/19 17:17 Urine Protein <15 mg/dl mg/dL (Negative) 02/20/19 17:17 Urine Glucose (UA) Neg mg/dL (Negative) 02/20/19 17:17 Urine Ketones Neg mg/dL (Negative) 02/20/19 17:17 Urine Blood Neg (Negative) 02/20/19 17:17 Urine Nitrite Neg (Negative) 02/20/19 17:17 Urine Bilirubin Neg (Negative) 02/20/19 17:17 Urine Urobilinogen 4.0 mg/dL (<2.0) 02/20/19 17:17 Ur Leukocyte Esterase Neg (Negative) 02/20/19 17:17 Urine WBC (Auto) 1.0 /HPF (0.0-6.0) 02/20/19 17:17 Urine RBC (Auto) < 1.0 /HPF (0.0-6.0) 02/20/19 17:17 U Epithel Cells (Auto) < 1.0 /HPF (0-13.0) 02/20/19 17:17 Salicylates 1.5 mg/dL (2.8-20.0) L 02/20/19 15:03 Urine Opiates Screen Presumptive negative 02/20/19 17:17 Urine Methadone Screen Presumptive negative 02/20/19 17:17 Acetaminophen < 5.0 ug/mL (10.0-30.0) L 12/16/19 15:03 Ur Barbiturates Screen Presumptive negative 02/20/19 17:17 Ur Phencyclidine Scrn Presumptive negative 02/20/19 17:17 Ur Amphetamines Screen Presumptive negative 02/20/19 17:17 U Benzodiazepines Scrn Presumptive negative 02/20/19 17:17 Urine Cocaine Screen Presumptive negative 02/20/19 17:17 U Marijuana (THC) Screen Presumptive negative 02/20/19 17:17 Drugs of Abuse Note Disclamer 02/20/19 17:17 Plasma/Serum Alcohol 0.04 % (0-0.07) 02/20/19 15:03 Assessment and Plan Assessment and plan: 63 year old man with history of hypertension, BPH, PTSD, hyperlipidemia was seen in the emergency room with complaints of dizziness and passing out for 1 minute and also chest tightness in the epigastric area intermediate for 20 minutes. He denies recent travel, CT chest shows bilateral PE. Agreed with full dose Lovenox, pulmonary/cardilogy consult. d/c oncology and neurology consult. Check doppler of the lower extremities, add asa for internal carotid plaque.
[2019-02-20] MEDS: TAMSULOSIN 0.4 MG CAP PO SCH (23:01)
[2019-02-20] MEDS: DOCUSATE SODIUM 100 MG CAP PO SCH (23:02)
[2019-02-20] MEDS: risperiDONE 1 MG TAB PO SCH (23:02)
[2019-02-20] MEDS: NICOTINE 14 MG/24 HR PATCH TD SCH (23:02)
[2019-02-21 07:02] LABS: BUN/Creatinine Ratio 14; Blood Urea Nitrogen 13 mg/dL (9-20); Calcium 8.2 mg/dL (8.4-10.2)
[2019-02-21 07:03] LABS: Hemolysis Index 20
[2019-02-21 09:01] LABS: INR 1.28 (0.87-1.13); Partial Thromboplastin Time 42.5 Sec. (24.2-36.6)
[2019-02-21 09:33] LABS: Basophils % (Auto) 1.3 % (0.0-1.8); Eosinophils % (Auto) 0.8 % (0.0-4.3); Hemoglobin 10.2 gm/dl (11.8-15.2); Lymphocytes # (Auto) 1.5 K/mm3 (1.2-5.4); Lymphocytes % (Auto) 40.7 % (13.4-35.0); Mean Corpuscular HGB Conc 34 % (32-34); Mean Corpuscular Volume 103 fl (84-94); Monocytes # (Auto) 0.3 K/mm3 (0.0-0.8); Monocytes % (Auto) 7.7 % (0.0-7.3); Platelet Count 218 K/mm3 (140-440); Red Blood Count 2.91 M/mm3 (3.65-5.03); Red Cell Distribution Width 17.5 % (13.2-15.2)
[2019-02-21] MEDS: DOCUSATE SODIUM 100 MG CAP PO SCH ×2 (09:43→21:57)
[2019-02-21] MEDS: LOSARTAN 25 MG TAB PO SCH (09:43)
[2019-02-21] MEDS: SERTRALINE 25 MG TAB PO SCH (09:43)
[2019-02-21] MEDS: hydroCHLOROthiazide 25 MG TAB PO SCH (09:43)
[2019-02-21] MEDS: FOLIC ACID 1 MG TAB PO SCH (09:44)
[2019-02-21] MEDS: THIAMINE 100 MG TAB PO SCH (09:44)
[2019-02-21] MEDS: ASPIRIN 81 MG TAB CHEW PO SCH (09:44)
[2019-02-21] MEDS: NICOTINE 14 MG/24 HR PATCH TD SCH (09:44)
[2019-02-21] MEDS ORDERED: ENOXAPARIN 60 MG/0.6 ML INJ SUB-Q SCH (10:00)
[2019-02-21] MEDS ORDERED: ENOXAPARIN 100 MG/1 ML INJ SUB-Q SCH (10:00)
--- NOTE | 2019-02-21 10:19 | Consultation ---
History of Present Illness Consult date: 02/21/19 Requesting physician: TAWANNA CAMPBELL Consult reason: chest pain, other (PE) History of present illness: The pt is a 63 YO male with a past medical history of HTN, current tobacco smoker, ETOH use (drinks several shots of liquor every other day). He is previously unknown to our practice. He presented for evaluation following syncopal episode. Pt states that he has been feeling well and in his normal state of health until yesterday evening when he was standing in the [employer] [place] when he suddenly developed chest tightness, dizziness and blurred vision and then passed out. He fell onto the ground and hit the right side of his head near his eye. EMS was called and the next thing the pt recalls is being in the ambul ance. On evaluation, he denies any current complaints and states he is feeling back to baseline. He denies any SOB, palpitations, n/v, diaphoresis. He denies any prior syncopal episodes. He denies any known prior cardiac issues. Head CT with NAF, chest CTA shows small bilateral pulmonary emboli. Past History Past Medical History: hypertension Past Surgical History: Other (Abscess removed) Social history: lives with family, smoking (current everday smoker), alcohol abuse. denies: IV drug use Family history: no significant family history Medications and Allergies Allergies Allergy/AdvReac Type Severity Reaction Status Date / Time No Known Allergies Allergy Unverified 03/12/13 19:44 Home Medications Medication Instructions Recorded Confirmed Last Taken Type Losartan [Cozaar] 25 mg PO QDAY 02/20/19 02/20/19 02/18/19 History Pravastatin [Pravachol] 20 mg PO QDAY 02/20/19 02/20/19 02/18/19 History Sertraline [Zoloft] 25 mg PO QDAY 02/20/19 02/20/19 02/18/19 History Tamsulosin [Flomax] 0.4 mg PO QHS 02/20/19 02/20/19 02/18/19 History hydroCHLOROthiazide [HCTZ] 25 mg PO QDAY 02/20/19 02/20/19 02/18/19 History raNITIdine HCl [Acid Organizational Development Specialist] 150 mg PO BID 02/20/19 02/20/19 02/18/19 History risperiDONE [RisperDAL] 1 mg PO QHS 02/20/19 02/20/19 02/18/19 History Active Meds: Active Medications Acetaminophen (Tylenol) 650 mg PO Q4H PRN PRN Reason: Pain MILD(1-3)/Fever >100.5/FLEMING Albuterol (Proventil) 2.5 mg IH Q3HRT PRN PRN Reason: Shortness Of Breath Aspirin (Baby Aspirin) 81 mg PO QDAY [facility] Last Admin: 02/21/19 09:44 Dose: 81 mg Documented by: Atorvastatin Calcium (Lipitor) 40 mg PO QHS [facility] Last Admin: 02/20/19 23:02 Dose: 40 mg Documented by: Docusate Sodium (Colace) 100 mg PO BID [facility] Last Admin: 02/21/19 09:43 Dose: 100 mg Documented by: Enoxaparin Sodium (Enoxaparin) 60 mg SUB-Q Q12HR [facility] Last Admin: 02/21/19 09:44 Dose: 60 mg Documented by: Folic Acid (Folvite) 1 mg PO QDAY [facility] Last Admin: 02/21/19 09:44 Dose: 1 mg Documented by: Hydrochlorothiazide (Hctz) 25 mg PO QDAY [facility] Last Admin: 02/21/19 09:43 Dose: 25 mg Documented by: Lorazepam (Ativan) 2 mg PO Q1H PRN PRN Reason: CIWA-Ar 8-15 Lorazepam (Ativan) 4 mg PO Q1H PRN PRN Reason: CIWA-Ar 16-25 Losartan Potassium (Cozaar) 25 mg PO QDAY [facility] Last Admin: 02/21/19 09:43 Dose: 25 mg Documented by: Morphine Sulfate (Morphine) 2 mg IV Q4H PRN PRN Reason: Pain, Moderate (4-6) Nicotine (Habitrol) 14 mg TD QDAY [facility] Last Admin: 02/21/19 09:44 Dose: 14 mg Documented by: Ondansetron HCl (Zofran) 4 mg IV Q8H PRN PRN Reason: Nausea And Vomiting Risperidone (Risperdal) 1 mg PO QHS [facility] Last Admin: 02/20/19 23:02 Dose: 1 mg Documented by: Sertraline HCl (Zoloft) 25 mg PO QDAY [facility] Last Admin: 02/21/19 09:43 Dose: 25 mg Documented by: Sodium Chloride (Sodium Chloride Flush Syringe 10 Ml) 10 ml IV BID [facility] Last Admin: 02/20/19 23:11 Dose: 10 ml Documented by: Sodium Chloride (Sodium Chloride Flush Syringe 10 Ml) 10 ml IV PRN PRN PRN Reason: LINE FLUSH Tamsulosin HCl (Flomax) 0.4 mg PO QHS [facility] Last Admin: 02/20/19 23:01 Dose: 0.4 mg Documented by: Thiamine HCl (Vitamin B-1) 100 mg PO QDAY [facility] Last Admin: 02/21/19 09:44 Dose: 100 mg Documented by: Review of Systems Constitutional: no weight loss, no weight gain, no fever, no chills, no sweats Ears, nose, mouth and throat: no ear pain, no nose pain, no sinus pressure, no sinus pain Cardiovascular: chest pain, syncope, lightheadedness, no orthopnea, no pa lpitations, no rapid/irregular heart beat, no edema, no shortness of breath, no dyspnea on exertion, no leg edema Respiratory: no cough, no shortness of breath, no dyspnea on exertion, no congestion, no wheezing, no pain on inspiration Gastrointestinal: no abdominal pain, no nausea, no vomiting, no diarrhea, no constipation, no change in bowel habits Genitourinary Male: no dysuria, no hematuria, no flank pain, no discharge, no urinary frequency, no urinary hesitancy Musculoskeletal: no neck stiffness, no neck pain, no shooting arm pain, no arm numbness/tingling, no low back pain, no shooting leg pain Integumentary: other (right orbital ecchymosis and mild swelling), no rash, no pruritis Neurological: syncope, other (blurred vision prior to syncopal episode), no paralysis, no weakness, no parathesias, no numbness, no tingling, no seizures, no lack of coordination, no vertigo, no change in speech, no change in mentation, no confusion, no memory loss Psychiatric: no anxiety Endocrine: no cold intolerance, no heat intolerance Hematologic/Lymphatic: no easy bruising, no easy bleeding Allergic/Immunologic: no urticaria, no wheezing Physical Examination Vital Signs Pulse Resp Pulse Ox 72 15 100 02/20/19 13:57 02/20/19 13:57 02/20/19 13:57 General appearance: no acute distress HEENT: Positive: PERRL, Normocephaly, Mucus Membranes Moist Neck: Positive: neck supple, trachea midline Cardiac: Positive: Reg Rate and Rhythm, S1/S2 Lungs: Positive: Decreased Breath Sounds Neuro: Positive: Grossly Intact Abdomen: Negative: Tender Skin: Positive: Other (right orbital ecchymosis and mild swelling). Negative: Rash Musculoskeletal: No Pain Extremities: Absent: edema Results 02/21/19 04:54 02/21/19 04:54 Cardiac Enzymes 02/20/19 Range/Units 15:03 AST 257 H (5-40) units/L Coagulation 02/20/19 02/21/19 Range/Units 15:03 04:54 PT 19.4 H 16.2 H (12.2-14.9) Sec. INR 1.61 H 1.28 H (0.87-1.13) APTT 42.5 H (24.2-36.6) Sec. Lipids 02/20/19 Range/Units 20:18 Triglycerides 549 H (2-149) mg/dL Cholesterol 198 (50-199) mg/dL HDL Cholesterol 31 L (40-59) mg/dL Cholesterol/HDL Ratio 6.38 % CBC 02/20/19 02/21/19 Range/Units 15:03 04:54 WBC 4.1 L 3.8 L (4.5-11.0) K/mm3 RBC 3.00 L 2.91 L (3.65-5.03) M/mm3 Hgb 10.6 L 10.2 L (11.8-15.2) gm/dl Hct 31.0 L 30.0 L (35.5-45.6) % Plt Count 213 218 (140-440) K/mm3 Lymph # 1.5 (1.2-5.4) K/mm3 [place] # 0.3 (0.0-0.8) K/mm3 Eos # 0.0 (0.0-0.4) K/mm3 Baso # 0.0 (0.0-0.1) K/mm3 Comprehensive Metabolic Panel 02/20/19 02/21/19 Range/Units 15:03 04:54 Sodium 138 137 (137-145) mmol/L Potassium 4.7 4.1 (3.6-5.0) mmol/L Chloride 99.0 97.4 L (98-107) mmol/L Carbon Dioxide 26 27 (22-30) mmol/L BUN 14 13 (9-20) mg/dL Creatinine 0.8 0.9 (0.8-1.5) mg/dL Glucose 118 H 119 H (75-100) mg/dL Calcium 8.1 L 8.2 L (8.4-10.2) mg/dL AST 257 H (5-40) units/L ALT 100 H (7-56) units/L Alkaline Phosphatase 121 (35-129) units/L Total Protein 5.2 L (6.3-8.2) g/dL Albumin 3.0 L (3.9-5) g/dL - Imaging and Cardiology Echo: pending EKG: report reviewed, image reviewed EKG interpretations - Telemetry EKG Rhythm: Sinus Rhythm - EKG Sinus rhythms and dysrhythmias: sinus rhythm Assessment and Plan Agree with present cardiac management. Full dosage Lovenox BID has been initiated per primary in setting of bilateral PE. Await echo. Cont to observe on telemetry. Await pulmonary consultation. Further recs to follow per hospital course. The patient has been seen in conjunction with Dr. Sharp who agrees with the assessment and plan of care. - Patient Problems (1) Syncope Current Visit: Yes Status: Acute (2) Chest pain Current Visit: Yes Status: Resolved (3) Bilateral pulmonary embolism Current Visit: Yes Status: Acute (4) HTN (hypertension) Current Visit: Yes Status: Chronic (5) Tobacco use Current Visit: Yes Status: Chronic (6) Alcohol use Current Visit: Yes Status: Chronic (7) Anemia Current Visit: Yes Status: Acute (8) Hypomagnesemia Current Visit: Yes Status: Acute
--- NOTE | 2019-02-21 11:16 | Vascular Lab Report ---
DUPLEX DOPPLER LOWER EXTREMITY VEINS, BILATERAL INDICATION / CLINICAL INFORMATION: Lower extremity pain and swelling. TECHNIQUE: Duplex doppler imaging was performed through the veins of both lower extremities using venous alta brenda and other maneuvers. COMPARISON: None available. FINDINGS: Right Common Femoral vein: Negative. Right Femoral vein: Negative. Right Popliteal vein: Negative. Right Calf veins: Negative. Left Common Femoral vein: Negative. Left Femoral vein: Negative. Left Popliteal vein: Negative. Left Calf veins: Negative. Additional findings: None. IMPRESSION: 1. No sonographic evidence for DVT in either lower extremity. Signer Name: Maximilian Zaragoza MD Signed: 02/21/2019 11:01 AM Workstation Name: [id number]
--- NOTE | 2019-02-21 17:18 | Progress Note ---
Assessment and Plan Assessment and plan: Patient is a 63-year-old -Cypriot man who is an ongoing smoker with history of hypertension, HLD, and BPH presents to [facility] ED via EMS with complaints of chest pain and syncopal episode. Patient was found to have bilateral PE mostly causing the syncope and CP. * CT angio Chest IMPRESSION: 1. Small bilateral pulmonary emboli. 2. Mild atelectasis versus infarct right lower lobe. * CT Head IMPRESSION: 1. Calcified atherosclerotic plaque is demonstrated along the cavernous segments of both internal carotid arteries. 2. Mild white matter lucency likely secondary to microvascular ischemic change. 3. No acute intracranial abnormality identified on head CT without contrast. * pCXR Impression: No acute abnormality of the chest Small Peripheral bilateral Pulmonary Emboli -At the lower lobes; Seen on today's CT angio Chest -D-Dimer elevated at 7327 -Start on Lovenox 1mg/kg BID to Eliquis -Hematology consulted -Pulmonary consulted -Cardiology consulted Acute atypical Chest Pain -Likely secondary to bilateral PE -Initiate chest pain protocol -Continuous telemetry monitoring -Continue supportive care -Pain mgmt -Troponin neg x2 -EKG unrevealing for acute ischemic abnormalities -CXR negative -On Statin -Echo pending -Cardiology consulted Syncope -Syncopal episode x1 - CT head showed: 1. Calcified atherosclerotic plaque is demonstrated along the cavernous segments of both internal carotid arteries. 2. Mild white matter lucency likely secondary to microvascular ischemic change. -Neuro checks -Neurology consulted Anemia -Hemoglobin on admission 10.6 -No s/s of active bleeding -Continue to monitor hemoglobin -Transfuse as needed Transaminitis -Continue to monitor for now -May consider GI consult if no improvement EtOH Abuse -Last drink 3 days ago -Serum alcohol 0.04 -Initiate CIWA protocol -Start Thiamine and Folic Acid -Counseled for cessation abuse Tobacco abuse -Current every day smoker -Counseled for cessation -Nicotine patch when necessary Mild to moderate malnutrition -Albumin 3.0 -BMI 16.5 -Start dietary supplements -Dietitian consulted DVT PPX -Eliquis History Interval history: Patient was seen and examined. Follow-up on current diagnosis. No overnight events reported to me. Patient denies any chest pain, shortness breath, nausea/vomiting or severe headaches. Imaging, nursing note, chart, labs and old chart reviewed. Discussed with patient. Hospitalist Physical - Physical exam Narrative exam: Gen: thin frail, NAD, Awake, Alert, Orientated HEENT: NCAT, EOMI, PERRL, OP Clear Neck: supple, no adenopathy, no thyromegaly, no JVD CVS/Heart: irregular irregular normal S1S2, pulses present bilaterally Chest/Lungs: CTA B, Symmetrical chest expansion, good air entry bilaterally GI/Abdomen: soft, NTND, good bowel sounds, no guarding or rebound /Bladder: no suprapubic tenderness, no CVA or paraspinal tenderness Extermity/Skin: no c/c/e, no obvious rash MSK: FROM x 4 Neuro: CN 2-12 grossly intact, no new focal deficits Psych: calm - Constitutional Vitals: Temp Pulse Resp BP Pulse Ox 98.2 F 79 18 127/84 98 02/21/19 08:27 02/21/19 09:43 02/21/19 08:27 02/21/19 09:43 02/21/19 08:27 General appearance: Present: no acute distress Results - Labs CBC & Chem 7: 02/21/19 04:54 02/21/19 04:54 Labs: Laboratory Last Values WBC 3.8 K/mm3 (4.5-11.0) L 02/21/19 04:54 RBC 2.91 M/mm3 (3.65-5.03) L 02/21/19 04:54 Hgb 10.2 gm/dl (11.8-15.2) L 02/21/19 04:54 Hct 30.0 % (35.5-45.6) L 02/21/19 04:54 MCV 103 fl (84-94) H 02/21/19 04:54 MCH 35 pg (28-32) H 02/21/19 04:54 MCHC 34 % (32-34) 02/21/19 04:54 RDW 17.5 % (13.2-15.2) H 02/21/19 04:54 Plt Count 218 K/mm3 (140-440) 02/21/19 04:54 Lymph % (Auto) 40.7 % (13.4-35.0) H 02/21/19 04:54 [place] % (Auto) 7.7 % (0.0-7.3) H 02/21/19 04:54 Eos % (Auto) 0.8 % (0.0-4.3) 02/21/19 04:54 Baso % (Auto) 1.3 % (0.0-1.8) 02/21/19 04:54 Lymph # 1.5 K/mm3 (1.2-5.4) 02/21/19 04:54 [place] # 0.3 K/mm3 (0.0-0.8) 02/21/19 04:54 Eos # 0.0 K/mm3 (0.0-0.4) 02/21/19 04:54 Baso # 0.0 K/mm3 (0.0-0.1) 02/21/19 04:54 Seg Neutrophils % 49.5 % (40.0-70.0) 02/21/19 04:54 Seg Neutrophils # 1.9 K/mm3 (1.8-7.7) 02/21/19 04:54 PT 16.2 Sec. (12.2-14.9) H 02/21/19 04:54 INR 1.28 (0.87-1.13) H 02/21/19 04:54 APTT 42.5 Sec. (24.2-36.6) H 02/21/19 04:54 D-Dimer 7327.05 ng/mlDDU (0-234) H 02/20/19 15:03 Sodium 137 mmol/L (137-145) 02/21/19 04:54 Potassium 4.1 mmol/L (3.6-5.0) 02/21/19 04:54 Chloride 97.4 mmol/L (98-107) L 02/21/19 04:54 Carbon Dioxide 27 mmol/L (22-30) 02/21/19 04:54 Anion Gap 17 mmol/L 02/21/19 04:54 BUN 13 mg/dL (9-20) 02/21/19 04:54 Creatinine 0.9 mg/dL (0.8-1.5) 02/21/19 04:54 Estimated GFR > 60 ml/min 02/21/19 04:54 BUN/Creatinine Ratio 14 % 02/21/19 04:54 Glucose 119 mg/dL (75-100) H 02/21/19 04:54 Calcium 8.2 mg/dL (8.4-10.2) L 02/21/19 04:54 Magnesium 1.60 mg/dL (1.7-2.3) L 02/20/19 15:03 Total Bilirubin 1.20 mg/dL (0.1-1.2) 02/20/19 15:03 AST 257 units/L (5-40) H 02/20/19 15:03 ALT 100 units/L (7-56) H 02/20/19 15:03 Alkaline Phosphatase 121 units/L (35-129) 02/20/19 15:03 Total Creatine Kinase 158 units/L (55-170) 02/20/19 15:03 Troponin T < 0.010 ng/mL (0.00-0.029) 02/20/19 18:08 Total Protein 5.2 g/dL (6.3-8.2) L 02/20/19 15:03 Albumin 3.0 g/dL (3.9-5) L 02/20/19 15:03 Albumin/Globulin Ratio 1.4 % 02/20/19 15:03 Triglycerides 549 mg/dL (2-149) H 02/20/19 20:18 Cholesterol 198 mg/dL (50-199) 02/20/19 20:18 LDL Cholesterol Direct TNR 02/20/19 20:18 HDL Cholesterol 31 mg/dL (40-59) L 02/20/19 20:18 Cholesterol/HDL Ratio 6.38 % 02/20/19 20:18 Lipase 21 units/L (13-60) 02/20/19 20:18 TSH 0.546 mlU/mL (0.270-4.200) 02/20/19 15:03 Urine Color Yellow (Yellow) 02/20/19 17:17 Urine Turbidity Clear (Clear) 02/20/19 17:17 Urine pH 6.0 (5.0-7.0) 02/20/19 17:17 Ur Specific [place] 1.016 (1.003-1.030) 02/20/19 17:17 Urine Protein <15 mg/dl mg/dL (Negative) 02/20/19 17:17 Urine Glucose (UA) Neg mg/dL (Negative) 02/20/19 17:17 Urine Ketones Neg mg/dL (Negative) 02/20/19 17:17 Urine Blood Neg (Negative) 02/20/19 17:17 Urine Nitrite Neg (Negative) 02/20/19 17:17 Urine Bilirubin Neg (Negative) 02/20/19 17:17 Urine Urobilinogen 4.0 mg/dL (<2.0) 02/20/19 17:17 Ur Leukocyte Esterase Neg (Negative) 02/20/19 17:17 Urine WBC (Auto) 1.0 /HPF (0.0-6.0) 02/20/19 17:17 Urine RBC (Auto) < 1.0 /HPF (0.0-6.0) 02/20/19 17:17 U Epithel Cells (Auto) < 1.0 /HPF (0-13.0) 02/20/19 17:17 Salicylates 1.5 mg/dL (2.8-20.0) L 02/20/19 15:03 Urine Opiates Screen Presumptive negative 02/20/19 17:17 Urine Methadone Screen Presumptive negative 02/20/19 17:17 Acetaminophen < 5.0 ug/mL (10.0-30.0) L 02/20/19 15:03 Ur Barbiturates Screen Presumptive negative 02/20/19 17:17 Ur Phencyclidine Scrn Presumptive negative 02/20/19 17:17 Ur Amphetamines Screen Presumptive negative 02/20/19 17:17 U Benzodiazepines Scrn Presumptive negative 02/20/19 17:17 Urine Cocaine Screen Presumptive negative 02/20/19 17:17 U Marijuana (THC) Screen Presumptive negative 02/20/19 17:17 Drugs of Abuse Note Disclamer 02/20/19 17:17 Plasma/Serum Alcohol 0.04 % (0-0.07) 02/20/19 15:03 Active Medications - Current Medications Current Medications: Generic Name Dose Route Start Last Admin Trade Name Freq PRN Reason Stop Dose Admin Acetaminophen 650 mg 02/20/19 19:47 Tylenol PO Q4H PRN Pain MILD(1-3)/Fever >100.5/FLEMING Albuterol 2.5 mg 02/20/19 19:47 Proventil IH Q3HRT PRN Shortness Of Breath Aspirin 81 mg 02/21/19 10:00 02/21/19 09:44 Baby Aspirin PO 81 mg QDAY BENEDICTO Administration Atorvastatin Calcium 40 mg 02/20/19 22:00 02/20/19 23:02 Lipitor PO 40 mg QHS BENEDICTO Administration Docusate Sodium 100 mg 02/20/19 22:00 02/21/19 09:43 Colace PO 100 mg BID BENEDICTO Administration Enoxaparin Sodium 60 mg 02/21/19 10:00 02/21/19 09:44 Enoxaparin SUB-Q 60 mg Q12HR BENEDICTO Administration Folic Acid 1 mg 02/21/19 10:00 02/21/19 09:44 Folvite PO 1 mg QDAY BENEDICTO Administration Hydrochlorothiazide 25 mg 02/21/19 10:00 02/21/19 09:43 Hctz PO 25 mg QDAY BENEDICTO Administration Lorazepam 2 mg 02/20/19 20:00 Ativan PO Q1H PRN CIWA-Ar 8-15 Lorazepam 4 mg 02/20/19 20:00 Ativan PO Q1H PRN CIWA-Ar 16-25 Losartan Potassium 25 mg 02/21/19 10:00 02/21/19 09:43 Cozaar PO 25 mg QDAY BENEDICTO Administration Morphine Sulfate 2 mg 02/20/19 19:51 Morphine IV Q4H PRN Pain, Moderate (4-6) Nicotine 14 mg 02/20/19 20:00 02/21/19 09:44 Habitrol TD 14 mg QDAY BENEDICTO Administration Ondansetron HCl 4 mg 02/20/19 19:47 Zofran IV Q8H PRN Nausea And Vomiting Risperidone 1 mg 02/20/19 22:00 02/20/19 23:02 Risperdal PO 1 mg QHS BENEDICTO Administration Sertraline HCl 25 mg 02/21/19 10:00 02/21/19 09:43 Zoloft PO 25 mg QDAY BENEDICTO Administration Sodium Chloride 10 ml 02/20/19 22:00 02/21/19 14:19 Sodium Chloride Flush Syringe 10 Ml IV 10 ml BID BENEDICTO Administration Sodium Chloride 10 ml 02/20/19 19:47 Sodium Chloride Flush Syringe 10 Ml IV PRN PRN LINE FLUSH Tamsulosin HCl 0.4 mg 02/20/19 22:00 02/20/19 23:01 Flomax PO 0.4 mg QHS BENEDICTO Administration Thiamine HCl 100 mg 02/21/19 10:00 02/21/19 09:44 Vitamin B-1 PO 100 mg QDAY BENEDICTO Administration Nutrition/Malnutrition Assess - Dietary Evaluation Nutrition/Malnutrition Findings: Nutrition Notes Start: 02/21/19 10:34 Freq: Status: Active Protocol: Document 02/21/19 10:35 PS (Rec: 02/21/19 11:58 PS [id number]) Co-Sign 02/21/19 10:35 LM Nutrition Notes Need for Assessment generated from: MD Order,MST Initial or Follow up Assessment Current Diagnosis Hypertension,Hyperlipidemia Other Pertinent Diagnosis EtOH abuse, transamintis, syncope Current Diet Cardiac Diet Labs/Tests Glu 119 Triglycerides 549 Pertinent Medications Reviewed Height 6 ft Weight 65.6 kg Usual Body Weight 72.575 kg [place] Body Weight (kg) 80.90 BMI 19.5 Intake Prior to Admission Fair Weight change and time frame 10% wt loss in 2 months Weight Status Underweight Subjective/Other Information MD order for malnutrition and ONS. 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 Pt states he gets full quick so he does not eat big meals. Pt. ate 100% of his breakfast and was open to trying Ensure Enlive Vanilla. Burn Absent Trauma Absent GI Symptoms None Current % PO Fair (50-74%) Minimum of two criteria Yes Interpretation of Weight Loss (non- 5% in 1 month severe) Muscle Mass Mild Depletion (non-severe) #2 Nutrition Diagnosis Malnutrition Etiology inadequate oral intake d/t lack of appetite As Evidenced by Signs and Symptoms 5% wt. loss in 1 month and mild muscle depletion, pt. 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 No Is Patient Ambulatory and/or Out of Bed Yes REE-([place]-St. Jeor-ambulatory/OOB) [ 1942.200 [id number]] Calculation [facility]ations [facility] Additional Notes Pro: 78 - 98 g (1.2-1.5 g/kg) Fluid: 1 ml/kcal Nutrition Intervention Change Diet Order: Continue Current Diet Add Supplement/Snack (indicate name/kcal Ensure Enlive Vanilla BID /protein ) Provides kCal: 700 Provides Protein (gm) 40 Goal #1 Meet 75% of energy/protein needs Anticipated Discharge Needs: Cardiac Diet Follow-Up By: 02/24/19 Additional Comments F/U for PO/ONS intakes/ tolerance
--- NOTE | 2019-02-21 18:22 | Consultation ---
History of Present Illness Consult date: 02/21/19 Requesting physician: LYNDSAY DAVIS Reason for consult: pulmonary embolism History of present illness: The pt is a 63 YO male with a past medical history of HTN, current tobacco smoker, ETOH use (drinks several shots of liquor every other day). He is previously unknown to our practice. He presented for evaluation following syncopal episode. Pt states that he has been feeling well and in his normal state of health until yesterday evening when he was standing in the [place] when he suddenly developed chest tightness, dizziness and blurred vision and then passed out. He fell onto the ground and hit the right side of his head near his eye. EMS was called and the next thing the pt recalls is being in the ambula nce. On evaluation, he denies any current complaints and states he is feeling back to baseline. He denies any SOB, palpitations, n/v, diaphoresis. He denies any prior syncopal episodes. He denies any known prior cardiac issues. Head CT with NAF, chest CTA shows small bilateral pulmonary emboli. Past History Past Medical History: hypertension Past Surgical History: Other (Abscess removed) Social history: lives with family, smoking (current everday smoker), alcohol abuse. denies: IV drug use Family history: no significant family history Medications and Allergies Allergies Allergy/AdvReac Type Severity Reaction Status Date / Time No Known Allergies Allergy Unverified 03/12/13 19:44 Home Medications Medication Instructions Recorded Confirmed Last Taken Type Losartan [Cozaar] 25 mg PO QDAY 02/20/19 02/20/19 02/18/19 History Pravastatin [Pravachol] 20 mg PO QDAY 02/20/19 02/20/19 02/18/19 History Sertraline [Zoloft] 25 mg PO QDAY 02/20/19 02/20/19 02/18/19 History Tamsulosin [Flomax] 0.4 mg PO QHS 02/20/19 02/20/19 02/18/19 History hydroCHLOROthiazide [HCTZ] 25 mg PO QDAY 02/20/19 02/20/19 02/18/19 History raNITIdine HCl [Acid Med Peds] 150 mg PO BID 02/20/19 02/20/19 02/18/19 History risperiDONE [RisperDAL] 1 mg PO QHS 02/20/19 02/20/19 02/18/19 History Active Meds: Active Medications Acetaminophen (Tylenol) 650 mg PO Q4H PRN PRN Reason: Pain MILD(1-3)/Fever >100.5/FLEMING Albuterol (Proventil) 2.5 mg IH Q3HRT PRN PRN Reason: Shortness Of Breath Apixaban (Eliquis) 10 mg PO Q12HR [facility]; Protocol Stop: 02/28/19 22:00 Apixaban (Eliquis) 5 mg PO Q12HR [facility] Aspirin (Baby Aspirin) 81 mg PO QDAY [facility] Last Admin: 02/21/19 09:44 Dose: 81 mg Documented by: Atorvastatin Calcium (Lipitor) 40 mg PO QHS [facility] Last Admin: 02/20/19 23:02 Dose: 40 mg Documented by: Docusate Sodium (Colace) 100 mg PO BID [facility] Last Admin: 02/21/19 09:43 Dose: 100 mg Documented by: Folic Acid (Folvite) 1 mg PO QDAY [facility] Last Admin: 02/21/19 09:44 Dose: 1 mg Documented by: Hydrochlorothiazide (Hctz) 25 mg PO QDAY [facility] Last Admin: 02/21/19 09:43 Dose: 25 mg Documented by: Lorazepam (Ativan) 2 mg PO Q1H PRN PRN Reason: CIWA-Ar 8-15 Lorazepam (Ativan) 4 mg PO Q1H PRN PRN Reason: CIWA-Ar 16-25 Losartan Potassium (Cozaar) 25 mg PO QDAY [facility] Last Admin: 02/21/19 09:43 Dose: 25 mg Documented by: Morphine Sulfate (Morphine) 2 mg IV Q4H PRN PRN Reason: Pain, Moderate (4-6) Nicotine (Habitrol) 14 mg TD QDAY [facility] Last Admin: 02/21/19 09:44 Dose: 14 mg Documented by: Ondansetron HCl (Zofran) 4 mg IV Q8H PRN PRN Reason: Nausea And Vomiting Risperidone (Risperdal) 1 mg PO QHS [facility] Last Admin: 02/20/19 23:02 Dose: 1 mg Documented by: Sertraline HCl (Zoloft) 25 mg PO QDAY [facility] Last Admin: 02/21/19 09:43 Dose: 25 mg Documented by: Sodium Chloride (Sodium Chloride Flush Syringe 10 Ml) 10 ml IV BID [facility] Last Admin: 02/21/19 14:19 Dose: 10 ml Documented by: Sodium Chloride (Sodium Chloride Flush Syringe 10 Ml) 10 ml IV PRN PRN PRN Reason: LINE FLUSH Tamsulosin HCl (Flomax) 0.4 mg PO QHS [facility] Last Admin: 02/20/19 23:01 Dose: 0.4 mg Documented by: Thiamine HCl (Vitamin B-1) 100 mg PO QDAY [facility] Last Admin: 02/21/19 09:44 Dose: 100 mg Documented by: Review of Systems All systems: negative Physical Examination Vital signs: Vital Signs Pulse Resp Pulse Ox 72 15 100 02/20/19 13:57 02/20/19 13:57 02/20/19 13:57 Results - Laboratory Findings CBC and BMP: 02/21/19 04:54 02/21/19 04:54 PT/INR, D-dimer PT 16.2 Sec. (12.2-14.9) H 02/21/19 04:54 INR 1.28 (0.87-1.13) H 02/21/19 04:54 D-Dimer 7327.05 ng/mlDDU (0-234) H 02/20/19 15:03 Abnormal lab findings: Abnormal Labs 02/20/19 02/20/19 02/20/19 15:03 15:03 15:03 WBC 4.1 L RBC 3.00 L Hgb 10.6 L Hct 31.0 L MCV 103 H MCH 35 H RDW 17.8 H Lymph % (Auto) [place] % (Auto) PT 19.4 H INR 1.61 H APTT D-Dimer 7327.05 H Chloride Glucose 118 H Calcium 8.1 L Magnesium 1.60 L AST 257 H ALT 100 H Total Protein 5.2 L Albumin 3.0 L Triglycerides HDL Cholesterol Salicylates Acetaminophen 02/20/19 02/20/19 02/20/19 15:03 15:03 20:18 WBC RBC Hgb Hct MCV MCH RDW Lymph % (Auto) [place] % (Auto) PT INR APTT D-Dimer Chloride Glucose Calcium Magnesium AST ALT Total Protein Albumin Triglycerides 549 H HDL Cholesterol 31 L Salicylates 1.5 L Acetaminophen < 5.0 L 02/21/19 02/21/19 02/21/19 04:54 04:54 04:54 WBC 3.8 L RBC 2.91 L Hgb 10.2 L Hct 30.0 L MCV 103 H MCH 35 H RDW 17.5 H Lymph % (Auto) 40.7 H [place] % (Auto) 7.7 H PT 16.2 H INR 1.28 H APTT 42.5 H D-Dimer Chloride 97.4 L Glucose 119 H Calcium 8.2 L Magnesium AST ALT Total Protein Albumin Triglycerides HDL Cholesterol Salicylates Acetaminophen - Diagnostic Findings CT scan - chest: image reviewed (very small bilateral pulmonary emboli) Assessment and Plan 63 y/o male with chest pain and syncopal event, found to have small bilateral pulmonary emboli, in a smoker. 1. Reviewed CT, no evidence of emphysema or hyperinflation from air trapping. Could benefit from outpatient PFT's. Smoking cessation encouraged 2. VTE, small in nature, incidental would be my guess, with lack of signi ficant structural pulmonary disease on CT, doubt this is what caused syncope. Doubt chest pain for that matter either. Fine with BID lovenox and would not start any oral therapy until all other workups that could be invasive are ruled out. 3. Agree with heme consult, no prior history of VTE. Needs hypercoag work up.
[2019-02-21] MEDS: TAMSULOSIN 0.4 MG CAP PO SCH (21:57)
[2019-02-21] MEDS: risperiDONE 1 MG TAB PO SCH (21:57)
[2019-02-21] MEDS: APIXABAN 5 MG TAB PO SCH (21:58)
[2019-02-22 06:15] LABS: BUN/Creatinine Ratio 14; Blood Urea Nitrogen 10 mg/dL (9-20); Calcium 8.2 mg/dL (8.4-10.2); Hemolysis Index 7
--- NOTE | 2019-02-22 10:07 | Progress Note ---
Assessment and Plan Echo reviewed - EF 55-60%, mild LVH, trace MR, mild TR. Agree with present cardiac management. Full dosage Lovenox BID has been initiated per primary in setting of bilateral PE. Pulmonary consultation noted, hematology consultation recommended. BLE duplex negative for DVT. Cont to observe on telemetry. Replete Mg. The patient has been seen in conjunction with Dr. Sharp who agrees with the assessment and plan of care. - Patient Problems (1) Syncope Current Visit: Yes Status: Acute (2) Chest pain Current Visit: Yes Status: Resolved (3) Bilateral pulmonary embolism Current Visit: Yes Status: Acute (4) HTN (hypertension) Current Visit: Yes Status: Chronic (5) Tobacco use Current Visit: Yes Status: Chronic (6) Alcohol use Current Visit: Yes Status: Chronic (7) Anemia Current Visit: Yes Status: Acute (8) Hypomagnesemia Current Visit: Yes Status: Acute Subjective Date of service: 02/22/19 Principal diagnosis: syncope; PE Interval history: pt resting in bed, no current complaints. in SR on tele. Objective Last Vital Signs Temp 97.9 F 02/22/19 08:06 Pulse 68 02/22/19 08:06 Resp 18 02/22/19 08:06 BP 135/79 02/22/19 08:06 Pulse Ox 96 02/22/19 08:06 - Physical Examination General: No Apparent Distress HEENT: Positive: PERRL, Normocephaly, Mucus Membranes Moist Neck: Positive: neck supple, trachea midline Cardiac: Positive: Reg Rate and Rhythm, S1/S2 Lungs: Positive: Decreased Breath Sounds Neuro: Positive: Grossly Intact Abdomen: Negative: Tender Skin: Positive: Other (right orbital ecchymosis and mild swelling). Negative: Rash Musculoskeletal: No Pain Extremities: Absent: edema - Labs and Meds Comprehensive Metabolic Panel 02/22/19 Range/Units 04:55 Sodium 135 L (137-145) mmol/L Potassium 3.6 (3.6-5.0) mmol/L Chloride 94.6 L (98-107) mmol/L Carbon Dioxide 26 (22-30) mmol/L BUN 10 (9-20) mg/dL Creatinine 0.7 L (0.8-1.5) mg/dL Glucose 120 H (75-100) mg/dL Calcium 8.2 L (8.4-10.2) mg/dL - Imaging and Cardiology EKG: report reviewed, image reviewed Echo: pending - Telemetry EKG Rhythm: Sinus Rhythm - EKG Sinus rhythms and dysrhythmias: sinus rhythm
[2019-02-22] MEDS: LOSARTAN 25 MG TAB PO SCH (10:12)
[2019-02-22] MEDS: SERTRALINE 25 MG TAB PO SCH (10:12)
[2019-02-22] MEDS: hydroCHLOROthiazide 25 MG TAB PO SCH (10:12)
[2019-02-22] MEDS: THIAMINE 100 MG TAB PO SCH (10:12)
[2019-02-22] MEDS: DOCUSATE SODIUM 100 MG CAP PO SCH (10:12)
[2019-02-22] MEDS: FOLIC ACID 1 MG TAB PO SCH (10:12)
[2019-02-22] MEDS: ASPIRIN 81 MG TAB CHEW PO SCH (10:12)
[2019-02-22] MEDS: APIXABAN 5 MG TAB PO SCH (10:12)
[2019-02-22] MEDS: NICOTINE 14 MG/24 HR PATCH TD SCH (10:13)
[2019-02-22] MEDS ORDERED: MAGNESIUM SULFATE 3 GM in SODIUM CHLORIDE 0.9% 100 ML IV ONE (11:00)
--- NOTE | 2019-02-22 12:21 | Discharge Summary ---
Providers - Providers Date of Admission: 02/20/19 19:47 Date of discharge: 02/22/19 Attending physician: LYNDSAY DAVIS 02/20/19 19:47 Consult to Physician [CONS] Routine Comment: Consulting Provider: RUBIA MOYA Physician Instructions: Reason For Exam: Small bilateral pulmonary emboli 02/20/19 19:52 Consult to Physician [CONS] Routine Comment: Consulting Provider: SAUL BENSON Physician Instructions: Reason For Exam: c/o CP, Small bilat PE seent on CTA, hx HTN HLD 02/20/19 19:59 Consult to Dietitian/Nutrition [CONS] Routine Physician Instructions: Reason For Exam: Reason for Consult: Malnutrition Primary care physician: D[employer]EL [employer]EL [employer]PERATOR Hospitalization Condition: Stable Hospital course: Patient is a 63-year-old -[place]ian man who is an ongoing smoker with history of hypertension, HLD, and BPH presents to [facility] ED via EMS with complaints of chest pain and syncopal episode. Patient was found to have b ilateral PE mostly causing the syncope and CP. at bedside says patient had active Prostate Cancer diagnosis at [place] 6 months via Colonoscopy but told the family that it is early stage. I inform that patient needs to return to [place] for the prostate cancer. was very rude to me because I informed them that the cancer is advance if the prostate cancer was found in the colon and I was not aware that patient had prostate cancer. She went off on me. Patient smelled of alcohol on arrival per documentation and he had serum ETOH level of 0.04, so he probably did not mention the prostate cancer. says she told EMS about the prostate cancer. * CT angio Chest IMPRESSION: 1. Small bilateral pulmonary emboli. 2. Mild atelectasis versus infarct right lower lobe. * CT Head IMPRESSION: 1. Calcified atherosclerotic plaque is demonstrated along the cavernous segments of both internal carotid arteries. 2. Mild white matter lucency likely secondary to microvascular ischemic change. 3. No acute intracranial abnormality identified on head CT without contrast. * pCXR Impression: No acute abnormality of the chest Discharge Diagnoses: Small Peripheral bilateral Pulmonary Emboli: on Eliquis Acute atypical Chest Pain related to PE Syncope, vasovagal Anemia Transaminitis EtOH Abuse Hypomagensemia Tobacco abuse Mild to moderate malnutrition H/o active prostate cancer Disposition: TO HOME OR SELFCARE Time spent for discharge: 35 minutes Core Measure Documentation - Palliative Care Palliative Care/ Comfort Measures: Not Applicable - Core Measures Any of the following diagnoses?: none - VTE Discharge Requirements Deep Vein Thrombosis/Pulmonary Embolism Present on Admission: No Has pt received <5 days of overlap therapy or INR<2.0: No Anticoagulant overlap therapy prescribed at discharge: No Contraindication No Overlap Therapy order at DC: Not Indicated Exam - Physical Exam Narrative exam: Gen: thin frail, NAD, Awake, Alert, Orientated HEENT: NCAT, EOMI, PERRL, OP Clear Neck: supple, no adenopathy, no thyromegaly, no JVD CVS/Heart: irregular irregular normal S1S2, pulses present bilaterally Chest/Lungs: CTA B, Symmetrical chest expansion, good air entry bilaterally GI/Abdomen: soft, NTND, good bowel sounds, no guarding or rebound /Bladder: no suprapubic tenderness, no CVA or paraspinal tenderness Extermity/Skin: no c/c/e, no obvious rash MSK: FROM x 4 Neuro: CN 2-12 grossly intact, no new focal deficits Psych: calm - Constitutional Vitals: Temp Pulse Resp BP Pulse Ox 98.0 F 68 18 136/82 95 02/22/19 12:07 02/22/19 12:07 02/22/19 12:07 02/22/19 12:07 02/22/19 12:07 Plan Activity: up only with assistance (up with assistance only), fall precautions, other (no strenous activity unless cleared by PCP) Diet: advance as tolerated Special Instructions: smoking cessation Follow up with: PRIMARY MD NINO [Primary Care Provider] - 3-5 Days RUBIA MOYA MD [Staff Physician] - 7 Days SAUL BENSON MD [Staff Physician] - 7 Days RADHA OMALLEY MD [Staff Physician] - 7 Days Prescriptions: Tamsulosin [Flomax] 0.4 mg PO QHS #30 cap AtorvaSTATin [Lipitor] 40 mg PO QHS #30 tablet risperiDONE [RisperDAL] 1 mg PO QHS #30 Docusate Sodium [Colace CAP] 100 mg PO BID #60 capsule Losartan [Cozaar] 25 mg PO QDAY #30 Folic Acid [Folvite] 1 mg PO QDAY #30 tablet Nicotine [Habitrol] 14 mg TD QDAY #14 patch hydroCHLOROthiazide [HCTZ] 25 mg PO QDAY #30 Thiamine [Vitamin B-1] 100 mg PO QDAY #30 tablet Sertraline [Zoloft] 25 mg PO QDAY #30 tab
--- NOTE | 2019-02-22 13:40 | Progress Note ---
Assessment and Plan 63 y/o male with chest pain and syncopal event, found to have small bilateral pulmonary emboli, in a smoker. 02/22/19: No objection to discharge today. Can follow up with physicians at [place]. 1. Reviewed CT, no evidence of emphysema or hyperinflation from air trapping. Could benefit from outpatient PFT's. Smoking cessation encouraged 2. VTE, small in nature, incidental would be my guess, with lack of s ignificant structural pulmonary disease on CT, doubt this is what caused syncope. Doubt chest pain for that matter either. Fine with BID lovenox and would not start any oral therapy until all other workups that could be invasive are ruled out. 3. Agree with heme consult, no prior history of VTE. Needs hypercoag work up. Subjective Date of service: 02/22/19 Principal diagnosis: syncope; PE Interval history: No acute events. Being discharged today. Objective Vital Signs - 12hr 02/22/19 02/22/19 02/22/19 03:50 05:00 08:06 Temperature 98.5 F 97.9 F Pulse Rate 72 70 68 Respiratory 16 18 Rate Blood Pressure 128/76 135/79 Blood Pressure [Right] O2 Sat by Pulse 96 96 Oximetry 02/22/19 12:07 Temperature 98.0 F Pulse Rate 68 Respiratory 18 Rate Blood Pressure Blood Pressure 136/82 [Right] O2 Sat by Pulse 95 Oximetry CBC and BMP: 02/21/19 04:54 02/22/19 04:55 ABG, PT/INR, D-dimer: PT/INR, D-dimer PT 16.2 Sec. (12.2-14.9) H 02/21/19 04:54 INR 1.28 (0.87-1.13) H 02/21/19 04:54 D-Dimer 7327.05 ng/mlDDU (0-234) H 02/20/19 15:03 Abnormal lab findings: Abnormal Labs 02/20/19 02/20/19 02/20/19 15:03 15:03 15:03 WBC 4.1 L RBC 3.00 L Hgb 10.6 L Hct 31.0 L MCV 103 H MCH 35 H RDW 17.8 H Lymph % (Auto) [place] % (Auto) PT 19.4 H INR 1.61 H APTT D-Dimer 7327.05 H Sodium Chloride Creatinine Glucose 118 H Calcium 8.1 L Magnesium 1.60 L AST 257 H ALT 100 H Total Protein 5.2 L Albumin 3.0 L Triglycerides HDL Cholesterol Salicylates Acetaminophen 02/20/19 02/20/19 02/20/19 15:03 15:03 20:18 WBC RBC Hgb Hct MCV MCH RDW Lymph % (Auto) [place] % (Auto) PT INR APTT D-Dimer Sodium Chloride Creatinine Glucose Calcium Magnesium AST ALT Total Protein Albumin Triglycerides 549 H HDL Cholesterol 31 L Salicylates 1.5 L Acetaminophen < 5.0 L 02/21/19 02/21/19 02/21/19 04:54 04:54 04:54 WBC 3.8 L RBC 2.91 L Hgb 10.2 L Hct 30.0 L MCV 103 H MCH 35 H RDW 17.5 H Lymph % (Auto) 40.7 H [place] % (Auto) 7.7 H PT 16.2 H INR 1.28 H APTT 42.5 H D-Dimer Sodium Chloride 97.4 L Creatinine Glucose 119 H Calcium 8.2 L Magnesium AST ALT Total Protein Albumin Triglycerides HDL Cholesterol Salicylates Acetaminophen 02/22/19 04:55 WBC RBC Hgb Hct MCV MCH RDW Lymph % (Auto) [place] % (Auto) PT INR APTT D-Dimer Sodium 135 L Chloride 94.6 L Creatinine 0.7 L Glucose 120 H Calcium 8.2 L Magnesium 1.50 L AST ALT Total Protein Albumin Triglycerides HDL Cholesterol Salicylates Acetaminophen
[2019-02-22 17:17] VITALS: BP 110/63
[2019-03-01] MEDS ORDERED: APIXABAN 5 MG TAB PO SCH (22:00)
== END 2019-02-22 17:34 | disposition home or self-care (01) | DRG 176 ==
LOC: ED 13:13 → 4A 19:47
PROVIDERS: ADMIT Internal Medicine; ATTEND Internal Medicine
DX: I26.99 Other pulmonary embolism without acute cor pulmonale (principal); D64.9 Anemia, unspecified; E44.0 Moderate protein-calorie malnutrition; I10 Essential (primary) hypertension; E78.00 Pure hypercholesterolemia, unspecified; F17.200 Nicotine dependence, unspecified, uncomplicated; N40.0 Benign prostatic hyperplasia without lower urinary tract symptoms; R55 Syncope and collapse; F10.10 Alcohol abuse, uncomplicated; Y90.9 Presence of alcohol in blood, level not specified; R74.0 Nonspecific elevation of levels of transaminase and lactic acid dehydrogenase [LDH]; I08.1 Rheumatic disorders of both mitral and tricuspid valves; E83.42 Hypomagnesemia; Z79.899 Other long term (current) drug therapy; Z68.1 Body mass index [BMI] 19.9 or less, adult; Z71.6 Tobacco abuse counseling
CPT/HCPCS: 36415; 70450; 71045; 71275; 80048; 80053; 80061; 80307; 80320; 81001; 82550; 83690; 83735; 84443; 84484; 85025; 85027; 85379; 85610; 85730; 93005; 93010; 93306; 93970; 96374; 99406; G0378; A9270-GY; G0480; J0610; J1650; J3475; J7040; Q9967

== ENCOUNTER 2019-02-27 08:40 | Emergency (ER) | payer MEDICAID ==
[2019-02-27] MEDS ORDERED: THIAMINE 100 MG, FOLIC ACID 1 MG, MULTIPLE VITAMIN INJ, ADULT 10 ML in SODIUM CHLORIDE ... IV ONE (09:30)
[2019-02-27 09:33] LABS: Basophils % (Auto) 0.4 % (0.0-1.8); Eosinophils % (Auto) 0.3 % (0.0-4.3); Hemoglobin 9.9 gm/dl (11.8-15.2); Lymphocytes # (Auto) 1.7 K/mm3 (1.2-5.4); Lymphocytes % (Auto) 36.7 % (13.4-35.0); Mean Corpuscular HGB Conc 35 % (32-34); Mean Corpuscular Volume 100 fl (84-94); Monocytes # (Auto) 0.5 K/mm3 (0.0-0.8); Monocytes % (Auto) 11.9 % (0.0-7.3); Platelet Count 263 K/mm3 (140-440); Red Blood Count 2.82 M/mm3 (3.65-5.03); Red Cell Distribution Width 16.1 % (13.2-15.2)
--- NOTE | 2019-02-27 09:40 | Cat Scan Report ---
CT HEAD WITHOUT CONTRAST INDICATION / CLINICAL INFORMATION: Syncope. TECHNIQUE: Axial imaging performed from the skull apex through the skull base without the use of cont rast. Sagittal and coronal reformatted images. All CT scans at this location are performed using CT dose reduction for ALARA by means of automated exposure control. COMPARISON: 02/20/2019 FINDINGS: CEREBRAL PARENCHYMA: A 2.1 x 2.1 x 1.3 cm acute hemorrhage is identified in the left anterior tempora l lobe with internal density measuring 58 Hounsfield units. A smaller similar appearing hyperdense le brenda is identified in the anterior right temporal lobe measuring 0.9 cm with internal density measuri ng 41 Hounsfield units. These are new since 02/20/2019 exam. There are mild nonspecific chronic whit e matter changes bilaterally which appear stable. The remaining brain parenchyma is within normal eckert its. EXTRA-AXIAL SPACES: Normal in size and morphology for the patient's age. VENTRICULAR SYSTEM: Normal in size and morphology for the patient's age. MIDLINE SHIFT OR HERNIATION: None. CEREBELLUM / BRAINSTEM: No significant abnormality. CALVARIUM: No significant abnormality. ORBITS: Normal as visualized. PARANASAL SINUSES / MASTOID AIR CELLS: Normal as visualized. SOFT TISSUES of HEAD: No significant abnormality. ADDITIONAL FINDINGS: None. IMPRESSION: Acute to subacute bitemporal hemorrhages, left greater than right, as described above. The etiology o f this is unclear. This could be posttraumatic in origin. These findings were discussed with Dr. Lacey in the emergency department at 0933 hours EST. Signer Name: Addison Condon Jr, MD Signed: 02/27/2019 9:35 AM Workstation Name: [id number]
[2019-02-27 09:42] LABS: INR 1.02 (0.87-1.13)
[2019-02-27] MEDS ORDERED: ONDANSETRON 4 MG/2 ML INJ IV ONE (09:42)
--- NOTE | 2019-02-27 09:42 | Emergency Department Report ---
ED Syncope HPI - General Chief Complaint: Weakness Stated Complaint: SYNCOPE LOW BP Time Seen by Provider: 02/27/19 08:44 Source: patient, family (girlfriend), EMS, old records Exam Limitations: no limitations - History of Present Illness Initial Comments: 63-year-old male with a past medical history of alcohol abuse, hypertension, prostate cancer, and recent diagnosis of pulmonary embolism on Eliquis presents to the hospital complains of headache, vomiting, and syncope. Patient's girlfriend at the bedside states that patient has complained a right-sided headache since last night. He had an episode of vomiting last night and this morning. Today he had a syncopal episode while sitting in the car. Contrary to what triage note says patient did not fall and hit his head with a syncopal episode today. EMS reports that patient had a pressure of 80/50, heart rate 70, and glucose of 159 upon their arrival. Patient see 1 L normal saline and blood pressure improved to 144/75 Patient was seen here on February 20 for syncope and fell and hit his head at that time. He was admitted here and had CT head, CT angio chest, and bilateral leg venous Dopplers, and echocardiogram performed. Diagnoses include bilateral pulmonary embolism in which patient was started on Eliquis. Girlfriend reports last dose Eliquis was last night. He has had memory problems since his fall with head injury and she states he has not had any alcohol since his discharge from the hospital on February 22. Patient was diagnosed with prostate cancer localized to the prostate as per in March and was supposed to follow-up in the summertime for 6 month visit. Further details regarding prostate cancer is not available. Patient's doctors are [facility] affiliated. Patient is alert and oriented to self, place, but states year is 1999. He complains of mild right-sided headache but denies chest pain or shortness of breath - Related Data Allergies/Adverse Reactions: Allergies No Known Allergies Allergy (Unverified 03/12/13 19:44) Home Medications: Ambulatory Orders Acetaminophen [Acetaminophen TAB] 1 tab PO Q4H PRN #15 tablet 02/22/19 Apixaban [Eliquis] 1 dose PO Q12HR #60 tablet 02/22/19 Aspirin [Aspirin BABY CHEW TAB] 81 mg PO QDAY #30 tab.chew 02/22/19 AtorvaSTATin [Lipitor] 40 mg PO QHS #30 tablet 02/22/19 Docusate Sodium [Colace CAP] 100 mg PO BID #60 capsule 02/22/19 Folic Acid [Folvite] 1 mg PO QDAY #30 tablet 02/22/19 Losartan [Cozaar] 25 mg PO QDAY #30 02/22/19 Nicotine [Habitrol] 14 mg TD QDAY #14 patch 02/22/19 Sertraline [Zoloft] 25 mg PO QDAY #30 tab 02/22/19 Tamsulosin [Flomax] 0.4 mg PO QHS #30 cap 02/22/19 Thiamine [Vitamin B-1] 100 mg PO QDAY #30 tablet 02/22/19 hydroCHLOROthiazide [HCTZ] 25 mg PO QDAY #30 02/22/19 risperiDONE [RisperDAL] 1 mg PO QHS #30 02/22/19 ED Review of Systems ROS: Stated complaint: SYNCOPE LOW BP Other details as noted in HPI Comment: All other systems reviewed and negative ED Past Medical Hx - Past Medical History Hx Hypertension: Yes Hx CVA: No Hx Heart Attack/AMI: No Hx Congestive Heart Failure: No Hx Diabetes: No Hx Deep Vein Thrombosis: No Hx Pulmonary Embolism: No Hx GERD: No Hx Liver Disease: No Hx Renal Disease: No Hx Sickle Cell Disease: No Hx Arthritis: No Hx Headaches / Migraines: No Hx Seizures: No Hx Kidney Stones: No Hx Psychiatric Treatment: No Hx Asthma: No Hx COPD: No Hx Tuberculosis: No Hx Dementia: No Hx HIV: No Additional medical history: high cholesterol - Surgical History Hx Coronary Stent: No Hx Open Heart Surgery: No Hx Pacemaker: No Hx Internal Defibrillator: No Hx Cholecystectomy: No Hx Appendectomy: No Hx Breast Surgery: No Additional Surgical History: Abscess removed - Social History Smoking Status: Current Every Day Smoker - Medications Home Medications: Home Medications Medication Instructions Recorded Confirmed Last Taken Type Acetaminophen [Acetaminophen TAB] 1 tab PO Q4H PRN #15 tablet 02/22/19 Unknown Rx Apixaban [Eliquis] 1 dose PO Q12HR #60 tablet 02/22/19 Unknown Rx Aspirin [Aspirin BABY CHEW TAB] 81 mg PO QDAY #30 tab.chew 02/22/19 Unknown Rx AtorvaSTATin [Lipitor] 40 mg PO QHS #30 tablet 02/22/19 Unknown Rx Docusate Sodium [Colace CAP] 100 mg PO BID #60 capsule 02/22/19 Unknown Rx Folic Acid [Folvite] 1 mg PO QDAY #30 tablet 02/22/19 Unknown Rx Losartan [Cozaar] 25 mg PO QDAY #30 02/22/19 Unknown Rx Nicotine [Habitrol] 14 mg TD QDAY #14 patch 02/22/19 Unknown Rx Sertraline [Zoloft] 25 mg PO QDAY #30 tab 02/22/19 Unknown Rx Tamsulosin [Flomax] 0.4 mg PO QHS #30 cap 02/22/19 Unknown Rx Thiamine [Vitamin B-1] 100 mg PO QDAY #30 tablet 02/22/19 Unknown Rx hydroCHLOROthiazide [HCTZ] 25 mg PO QDAY #30 02/22/19 Unknown Rx risperiDONE [RisperDAL] 1 mg PO QHS #30 02/22/19 Unknown Rx ED Physical Exam - General Limitations: No Limitations - Other Other exam information: General: No acute distress Head: Atraumatic Eyes: right periorbital ecchymosis, extraocular movements intact, pupils equal reactive to light ENT: Moist mucous membranes Neck: Normal appearance, no midline tenderness Chest: Clear to auscultation bilaterally CV: Regular rate and rhythm Abdomen: Soft, normal bowel sounds, nontender, nondistended, no rebound or guarding Back: Normal inspection Extremity: Normal inspection infection, full range of motion Neuro: Alert O x 2, no facial asymmetry, speech clear, no gross motor sensory deficit, finger nose finger intact. GCS 15 Psych: Appropriate behavior Skin: No rash ED Course Vital Signs 02/27/19 02/27/19 02/27/19 09:20 09:30 09:46 Temperature 97.6 F Pulse Rate 55 L 53 L 57 L Respiratory 16 17 13 Rate Blood Pressure 160/127 Blood Pressure 160/127 [Right] O2 Sat by Pulse 100 100 100 Oximetry 02/27/19 02/27/19 02/27/19 10:00 10:01 10:16 Temperature Pulse Rate 59 L 60 71 Respiratory 15 15 11 L Rate Blood Pressure 154/76 146/73 Blood Pressure 172/91 [Right] O2 Sat by Pulse 91 100 98 Oximetry 02/27/19 02/27/19 02/27/19 10:30 10:46 11:00 Temperature Pulse Rate 59 L 60 59 L Respiratory 10 L 25 H 14 Rate Blood Pressure 165/88 155/87 180/87 Blood Pressure [Right] O2 Sat by Pulse 99 100 Oximetry 02/27/19 02/27/19 02/27/19 11:15 11:30 11:45 Temperature Pulse Rate 63 60 57 L Respiratory 13 21 10 L Rate Blood Pressure 173/84 173/84 158/82 Blood Pressure [Right] O2 Sat by Pulse 100 98 98 Oximetry - Consultations Consultation #1: 02/27/19 9:43 Call placed to [facility] transfer surgeon. Awaiting trauma attending call back. 02/27/19 11:[address] call back from Dr Jackson with [facility] trauma surgeon. Pt is accepted for transfer. No PCC rec at this time. ED Medical Decision Making - Lab Data Result diagrams: 02/27/19 08:54 02/27/19 08:54 Lab Results 02/27/19 02/27/19 02/27/19 Range/Units 08:54 08:54 08:54 WBC 4.6 (4.5-11.0) K/mm3 RBC 2.82 L (3.65-5.03) M/mm3 Hgb 9.9 L (11.8-15.2) gm/dl Hct 28.0 L (35.5-45.6) % MCV 100 H (84-94) fl MCH 35 H (28-32) pg MCHC 35 H (32-34) % RDW 16.1 H (13.2-15.2) % Plt Count 263 (140-440) K/mm3 Lymph % (Auto) 36.7 H (13.4-35.0) % [place] % (Auto) 11.9 H (0.0-7.3) % Eos % (Auto) 0.3 (0.0-4.3) % Baso % (Auto) 0.4 (0.0-1.8) % Lymph # 1.7 (1.2-5.4) K/mm3 [place] # 0.5 (0.0-0.8) K/mm3 Eos # 0.0 (0.0-0.4) K/mm3 Baso # 0.0 (0.0-0.1) K/mm3 Seg Neutrophils % 50.7 (40.0-70.0) % Seg Neutrophils # 2.3 (1.8-7.7) K/mm3 PT 13.5 (12.2-14.9) Sec. INR 1.02 (0.87-1.13) APTT 26.8 (24.2-36.6) Sec. Sodium 117 L* (137-145) mmol/L Potassium 3.8 (3.6-5.0) mmol/L Chloride 78.9 L (98-107) mmol/L Carbon Dioxide 22 (22-30) mmol/L Anion Gap 20 mmol/L BUN 12 (9-20) mg/dL Creatinine 0.7 L (0.8-1.5) mg/dL Estimated GFR > 60 ml/min BUN/Creatinine Ratio 17 % Glucose 102 H (75-100) mg/dL Calcium 8.1 L (8.4-10.2) mg/dL Magnesium (1.7-2.3) mg/dL Total Bilirubin 0.90 (0.1-1.2) mg/dL AST 54 H (5-40) units/L ALT 42 (7-56) units/L Alkaline Phosphatase 91 (35-129) units/L Ammonia (25-60) umol/L Total Creatine Kinase 98 (55-170) units/L CK-MB (CK-2) 1.4 (0.0-4.0) ng/mL CK-MB (CK-2) Rel Index 1.4 (0-4) Troponin T < 0.010 (0.00-0.029) ng/mL Total Protein 5.8 L (6.3-8.2) g/dL Albumin 3.3 L (3.9-5) g/dL Albumin/Globulin Ratio 1.3 % Urine Color (Yellow) Urine Turbidity (Clear) Urine pH (5.0-7.0) Ur Specific [place] (1.003-1.030) Urine Protein (Negative) mg/dL Urine Glucose (UA) (Negative) mg/dL Urine Ketones (Negative) mg/dL Urine Blood (Negative) Urine Nitrite (Negative) Urine Bilirubin (Negative) Urine Urobilinogen (<2.0) mg/dL Ur Leukocyte Esterase (Negative) Urine WBC (Auto) (0.0-6.0) /HPF Urine RBC (Auto) (0.0-6.0) /HPF Urine Bacteria (Auto) (Negative) /HPF Urine Mucus /HPF Urine Opiates Screen Urine Methadone Screen Ur Barbiturates Screen Ur Phencyclidine Scrn Ur Amphetamines Screen U Benzodiazepines Scrn Urine Cocaine Screen U Marijuana (THC) Screen Drugs of Abuse Note Plasma/Serum Alcohol (0-0.07) % Blood Type Antibody Screen 02/27/19 02/27/19 02/27/19 Range/Units 08:54 08:54 08:54 WBC (4.5-11.0) K/mm3 RBC (3.65-5.03) M/mm3 Hgb (11.8-15.2) gm/dl Hct (35.5-45.6) % MCV (84-94) fl MCH (28-32) pg MCHC (32-34) % RDW (13.2-15.2) % Plt Count (140-440) K/mm3 Lymph % (Auto) (13.4-35.0) % [place] % (Auto) (0.0-7.3) % Eos % (Auto) (0.0-4.3) % Baso % (Auto) (0.0-1.8) % Lymph # (1.2-5.4) K/mm3 [place] # (0.0-0.8) K/mm3 Eos # (0.0-0.4) K/mm3 Baso # (0.0-0.1) K/mm3 Seg Neutrophils % (40.0-70.0) % Seg Neutrophils # (1.8-7.7) K/mm3 PT (12.2-14.9) Sec. INR (0.87-1.13) APTT (24.2-36.6) Sec. Sodium (137-145) mmol/L Potassium (3.6-5.0) mmol/L Chloride (98-107) mmol/L Carbon Dioxide (22-30) mmol/L Anion Gap mmol/L BUN (9-20) mg/dL Creatinine (0.8-1.5) mg/dL Estimated GFR ml/min BUN/Creatinine Ratio % Glucose (75-100) mg/dL Calcium (8.4-10.2) mg/dL Magnesium 1.40 L (1.7-2.3) mg/dL Total Bilirubin (0.1-1.2) mg/dL AST (5-40) units/L ALT (7-56) units/L Alkaline Phosphatase (35-129) units/L Ammonia 15.0 L (25-60) umol/L Total Creatine Kinase (55-170) units/L CK-MB (CK-2) (0.0-4.0) ng/mL CK-MB (CK-2) Rel Index (0-4) Troponin T (0.00-0.029) ng/mL Total Protein (6.3-8.2) g/dL Albumin (3.9-5) g/dL Albumin/Globulin Ratio % Urine Color (Yellow) Urine Turbidity (Clear) Urine pH (5.0-7.0) Ur Specific [place] (1.003-1.030) Urine Protein (Negative) mg/dL Urine Glucose (UA) (Negative) mg/dL Urine Ketones (Negative) mg/dL Urine Blood (Negative) Urine Nitrite (Negative) Urine Bilirubin (Negative) Urine Urobilinogen (<2.0) mg/dL Ur Leukocyte Esterase (Negative) Urine WBC (Auto) (0.0-6.0) /HPF Urine RBC (Auto) (0.0-6.0) /HPF Urine Bacteria (Auto) (Negative) /HPF Urine Mucus /HPF Urine Opiates Screen Urine Methadone Screen Ur Barbiturates Screen Ur Phencyclidine Scrn Ur Amphetamines Screen U Benzodiazepines Scrn Urine Cocaine Screen U Marijuana (THC) Screen Drugs of Abuse Note Plasma/Serum Alcohol < 0.01 (0-0.07) % Blood Type Antibody Screen 02/27/19 02/27/19 02/27/19 Range/Units 09:20 11:26 11:26 WBC (4.5-11.0) K/mm3 RBC (3.65-5.03) M/mm3 Hgb (11.8-15.2) gm/dl Hct (35.5-45.6) % MCV (84-94) fl MCH (28-32) pg MCHC (32-34) % RDW (13.2-15.2) % Plt Count (140-440) K/mm3 Lymph % (Auto) (13.4-35.0) % [place] % (Auto) (0.0-7.3) % Eos % (Auto) (0.0-4.3) % Baso % (Auto) (0.0-1.8) % Lymph # (1.2-5.4) K/mm3 [place] # (0.0-0.8) K/mm3 Eos # (0.0-0.4) K/mm3 Baso # (0.0-0.1) K/mm3 Seg Neutrophils % (40.0-70.0) % Seg Neutrophils # (1.8-7.7) K/mm3 PT (12.2-14.9) Sec. INR (0.87-1.13) APTT (24.2-36.6) Sec. Sodium (137-145) mmol/L Potassium (3.6-5.0) mmol/L Chloride (98-107) mmol/L Carbon Dioxide (22-30) mmol/L Anion Gap mmol/L BUN (9-20) mg/dL Creatinine (0.8-1.5) mg/dL Estimated GFR ml/min BUN/Creatinine Ratio % Glucose (75-100) mg/dL Calcium (8.4-10.2) mg/dL Magnesium (1.7-2.3) mg/dL Total Bilirubin (0.1-1.2) mg/dL AST (5-40) units/L ALT (7-56) units/L Alkaline Phosphatase (35-129) units/L Ammonia (25-60) umol/L Total Creatine Kinase (55-170) units/L CK-MB (CK-2) (0.0-4.0) ng/mL CK-MB (CK-2) Rel Index (0-4) Troponin T (0.00-0.029) ng/mL Total Protein (6.3-8.2) g/dL Albumin (3.9-5) g/dL Albumin/Globulin Ratio % Urine Color Yellow (Yellow) Urine Turbidity Clear (Clear) Urine pH 8.0 H (5.0-7.0) Ur Specific [place] 1.012 (1.003-1.030) Urine Protein <15 mg/dl (Negative) mg/dL Urine Glucose (UA) Neg (Negative) mg/dL Urine Ketones Neg (Negative) mg/dL Urine Blood Neg (Negative) Urine Nitrite Neg (Negative) Urine Bilirubin Neg (Negative) Urine Urobilinogen < 2.0 (<2.0) mg/dL Ur Leukocyte Esterase Neg (Negative) Urine WBC (Auto) 1.0 (0.0-6.0) /HPF Urine RBC (Auto) 2.0 (0.0-6.0) /HPF Urine Bacteria (Auto) 1+ (Negative) /HPF Urine Mucus Few /HPF Urine Opiates Screen Presumptive negative Urine Methadone Screen Presumptive negative Ur Barbiturates Screen Presumptive negative Ur Phencyclidine Scrn Presumptive negative Ur Amphetamines Screen Presumptive negative U Benzodiazepines Scrn Presumptive negative Urine Cocaine Screen Presumptive negative U Marijuana (THC) Screen Presumptive negative Drugs of Abuse Note Disclamer Plasma/Serum Alcohol (0-0.07) % Blood Type A POSITIVE Antibody Screen Negative - EKG Data -: EKG Interpreted by Tx EKG shows normal: sinus rhythm, ST-T waves (no stemi) Rate: bradycardia (56) - Radiology Data Radiology results: report reviewed (ct head: acute to subacute biltemporal hemorrhages, left greater than right.) - Medical Decision Making pt requires transfer because we do have trauma or neurosurgery coverage available. 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 Accepted bytrauma attending Dr jackson. most recent d/c summary, images report from today and recent admission, pulm consult note, echo, card consult note,d/c med list included with transfer of today's medical record - Differential Diagnosis cva, arrhythmia, anemia, hypoxia Critical Care Time: No Critical care attestation.: If time is entered above; I have spent that time in minutes in the direct care of this critically ill patient, excluding procedure time. ED Disposition Clinical Impression: Left temporal lobe hemorrhage, Hemorrhage of right temporal lobe, Traumatic periorbital ecchymosis of right eye, Current use of anticoagulant therapy, Hyponatremia, Alcohol abuse, Hypomagnesemia, Bilateral pulmonary embolism, Syncope, Anemia Disposition: DC/TX-70 ANOTHER TYPE HLTHCARE Is pt being admited?: No Does the pt Need Aspirin: No Condition: Stable Time of Disposition: 11:32 (Accepted tx [facility] trauma Dr Jackson)
[2019-02-27 09:43] LABS: Partial Thromboplastin Time 26.8 Sec. (24.2-36.6)
--- NOTE | 2019-02-27 09:55 | Cat Scan Report ---
CT CERVICAL SPINE WITHOUT CONTRAST INDICATION: syncope. TECHNIQUE: Axial imaging performed through the cervical spine without the use of contrast. Sagittal and coronal reconstructed images were also reviewed. All CT scans at this location are performed us ing CT dose reduction for ALARA by means of automated exposure control. COMPARISON: None FINDINGS: Alignment: Spinal alignment is normal. Bones: There is no acute osseous abnormality. Mild to moderate discogenic disc disease is identifie d at C5-6, C6-7 and C7-T1. There is mild facet arthropathy at C4-5. The posterior spinous processes at C7 and T1 are cut off the [id number]. Soft tissues: No acute or significant incidental soft tissue abnormality. IMPRESSION: Cervical spondylosis as described. No acute injury is appreciated. Signer Name: Addison Condon Jr, MD Signed: 02/27/2019 9:51 AM Workstation Name: [id number]
[2019-02-27] MEDS ORDERED: MAGNESIUM SULFATE 2 GM/50 ML BAG IV ONE (10:14)
--- NOTE | 2019-02-27 10:19 | XRay Report ---
CHEST 1 VIEW INDICATION: Syncope. COMPARISON: 02/20/2019 FINDINGS: Support devices: None. Heart: Within normal limits. Lungs/Pleura: No acute air space or interstitial disease. Additional findings: None. IMPRESSION: No acute findings. Signer Name: Addison Condon Jr, MD Signed: 02/27/2019 10:15 AM Workstation Name: [id number]
[2019-02-27 10:36] LABS: Creatine Kinase MB 1.4 ng/mL (0.0-4.0)
[2019-02-27 10:38] LABS: Alanine Aminotransferase 42 units/L (7-56); Albumin 3.3 g/dL (3.9-5); BUN/Creatinine Ratio 17; Blood Urea Nitrogen 12 mg/dL (9-20); Calcium 8.1 mg/dL (8.4-10.2); Hemolysis Index 4
[2019-02-27 11:51] VITALS: BP 158/82
[2019-02-27 12:09] LABS: Amphetamine Screen,Urine PRESUMPTIVE NEGATIVE; Benzodiazepines Screen,Urine PRESUMPTIVE NEGATIVE; Cannabinoid Screen,Urine PRESUMPTIVE NEGATIVE; Cocaine Screen,Urine PRESUMPTIVE NEGATIVE; Methadone Screen,Urine PRESUMPTIVE NEGATIVE; Opiate Screen,Urine PRESUMPTIVE NEGATIVE
[2019-02-27] MEDS ORDERED: SODIUM CHLORIDE 0.9% 1000 ML 1,000 ML IV ONE ×2 (12:19→12:25)
[2019-02-27 12:21] LABS: Bacteria,Urine 1+ /HPF (Negative); Bilirubin,Urine NEG (Negative); Blood,Urine NEG (Negative); Color,Urine Yellow (Yellow); Mucus,Urine FEW /HPF; Protein,Urine <15 mg/dL mg/dL (Negative); Urobilinogen,Urine < 2.0 mg/dL (<2.0)
== END 2019-02-27 12:50 | disposition other institution (70) ==
LOC: ED 08:40
DX: S05.11XA Contusion of eyeball and orbital tissues, right eye, initial encounter (principal); I61.1 Nontraumatic intracerebral hemorrhage in hemisphere, cortical; E87.1 Hypo-osmolality and hyponatremia; I10 Essential (primary) hypertension; E78.00 Pure hypercholesterolemia, unspecified; F17.200 Nicotine dependence, unspecified, uncomplicated; E83.42 Hypomagnesemia; I26.99 Other pulmonary embolism without acute cor pulmonale; Z86.2 Personal history of diseases of the blood and blood-forming organs and certain disorders involving the immune mechanism; Z79.899 Other long term (current) drug therapy; X58.XXXA Exposure to other specified factors, initial encounter; Y93.89 Activity, other specified; Y92.89 Other specified places as the place of occurrence of the external cause; Y99.8 Other external cause status
CPT/HCPCS: 36415; 70450; 71045; 72125; 80053; 80307; 81001; 82140; 82550; 82553; 83735; 84484; 85025; 85610; 85730; 86850; 86900; 86901; 93005; 93010; 96365; 96368; 96375; 99285; J2405; J3411; J3475; J7030; 80320; G0480

== ENCOUNTER 2019-03-15 10:45 | Emergency (ER) | payer MEDICAID ==
[2019-03-15] MEDS ORDERED: levETIRAcetam 1,000 MG in DEXTROSE 5% IN WATER 100 ML IV ONE (12:05)
[2019-03-15] MEDS ORDERED: SODIUM CHLORIDE 0.9% 1000 ML 500 ML IV ONE (12:05)
[2019-03-15] MEDS ORDERED: levETIRAcetam 1000 MG/NS 0.75% 0 MG/0 ML BAG IV ONE (12:12)
[2019-03-15 12:32] LABS: Basophils % (Auto) 0.5 % (0.0-1.8); Eosinophils % (Auto) 0.6 % (0.0-4.3); Hematocrit 29.5 % (35.5-45.6); Hemoglobin 10.3 gm/dl (11.8-15.2); Lymphocytes # (Auto) 0.8 K/mm3 (1.2-5.4); Lymphocytes % (Auto) 16.8 % (13.4-35.0); Mean Corpuscular HGB Conc 35 % (32-34); Mean Corpuscular Volume 101 fl (84-94); Monocytes # (Auto) 0.5 K/mm3 (0.0-0.8); Platelet Count 396 K/mm3 (140-440); Red Blood Count 2.91 M/mm3 (3.65-5.03)
[2019-03-15 12:43] LABS: INR 1.11 (0.87-1.13)
[2019-03-15 12:44] LABS: Partial Thromboplastin Time 30.9 Sec. (24.2-36.6)
--- NOTE | 2019-03-15 12:56 | Cat Scan Report ---
CT head/brain wo con INDICATION / CLINICAL INFORMATION: 63 years Male; Alterted Mental Status. TECHNIQUE: Routine CT head without contrast. All CT scans at this location are performed using CT dos e reduction for ALARA by means of automated exposure control. COMPARISON: The study is compared to the previous CT of 02/27/2019. FINDINGS: BRAIN / INTRACRANIAL CONTENTS: There have been interval evolutionary changes of the hemorrhage involv ing inferior left temporal lobe from the previous CT of 02/27/2019. There is residual edema with mild sulcal effacement. Milder findings were noted along the medial right temporal lobe on the prior stud y also with interval evolutionary findings which may reflect a hemorrhagic contusions a given the loc ation and bilaterality; correlation would be needed. There is otherwise mild cerebral white matter disease most consistent with microvascular angiopathy. The ventricular system remains appropriate in size and configuration. There is no interval developing acute hemorrhage. ORBITS: No significant abnormality of visualized orbits. SINUSES / MASTOIDS: No significant abnormality the visualized paranasal sinuses or mastoid air cells. CRANIOCERVICAL JUNCTION: No significant abnormality. ADDITIONAL FINDINGS: There is continued irregularity involving the anterior nasal bones with milder d isplacement on the left. The findings correlate with the earlier CT. IMPRESSION: 1. There have been interval evolutionary changes of the hemorrhage involving the inferior temporal lo bes, larger on the left as a detailed above. The findings may reflect a resolving hemorrhagic contusi ons given the location and bilateral alveolar the; correlation would be needed. 2. There is otherwise mild microvascular angiopathy. Signer Name: Marcell Pope MD Signed: 03/15/2019 12:51 PM Workstation Name: [id number]
[2019-03-15 13:00] LABS: Bilirubin,Urine NEG (Negative); Blood,Urine NEG (Negative); Color,Urine Straw (Yellow); Mucus,Urine FEW /HPF; Protein,Urine <15 mg/dL mg/dL (Negative); Urobilinogen,Urine < 2.0 mg/dL (<2.0)
[2019-03-15 13:06] LABS: Amphetamine Screen,Urine PRESUMPTIVE NEGATIVE; Benzodiazepines Screen,Urine PRESUMPTIVE NEGATIVE; Cannabinoid Screen,Urine PRESUMPTIVE NEGATIVE; Cocaine Screen,Urine PRESUMPTIVE NEGATIVE; Methadone Screen,Urine PRESUMPTIVE NEGATIVE; Opiate Screen,Urine PRESUMPTIVE NEGATIVE
[2019-03-15 13:08] LABS: BUN/Creatinine Ratio 19; Blood Urea Nitrogen 13 mg/dL (9-20); Calcium 9.1 mg/dL (8.4-10.2); Hemolysis Index 2
[2019-03-15 13:10] LABS: WBC,Urine < 1.0 /HPF (0.0-6.0)
--- NOTE | 2019-03-15 13:12 | XRay Report ---
CHEST 1 VIEW INDICATION: tachycardia. COMPARISON: 02/27/2019 FINDINGS: SUPPORT DEVICES: None. HEART / MEDIASTINUM: No significant abnormality. LUNGS / PLEURA: No significant pulmonary or pleural abnormality. No pneumothorax. ADDITIONAL FINDINGS: IMPRESSION: 1. No acute findings. Signer Name: Roman Bonilla MD Signed: 03/15/2019 1:08 PM Workstation Name: [id number]
[2019-03-15] MEDS ORDERED: SODIUM CHLORIDE 0.9% 1000 ML 1,000 ML IV ONE (13:27)
--- NOTE | 2019-03-15 13:29 | Emergency Department Report ---
ED Dizziness HPI - General Chief Complaint: Dizziness Stated Complaint: SYNCOPY Time Seen by Provider: 03/15/19 12:01 Source: patient, EMS Mode of arrival: Stretcher Limitations: No Limitations - History of Present Illness Initial Comments: Family reports patient lightheaded this morning and had syncopal/seizure episode this morning. Denies trauma. Reports patient was discharged from [place] on where he was being followed for a fall thought resulting in a brain bleed. Reports patient was on anticoagulants when he fell which resulted in a brain bleed. Reports he was on anticoagulants for PE. Reports patient since discharge from [place] had anti-coagulants discontinued. Reports patient has no history of seizures. - Related Data Previous Rx's Medication Instructions Recorded Last Taken Type Acetaminophen [Acetaminophen TAB] 1 tab PO Q4H PRN #15 tablet 02/22/19 Unknown Rx Apixaban [Eliquis] 1 dose PO Q12HR #60 tablet 02/22/19 Unknown Rx Aspirin [Aspirin BABY CHEW TAB] 81 mg PO QDAY #30 tab.chew 02/22/19 Unknown Rx AtorvaSTATin [Lipitor] 40 mg PO QHS #30 tablet 02/22/19 Unknown Rx Docusate Sodium [Colace CAP] 100 mg PO BID #60 capsule 02/22/19 Unknown Rx Folic Acid [Folvite] 1 mg PO QDAY #30 tablet 02/22/19 Unknown Rx Losartan [Cozaar] 25 mg PO QDAY #30 02/22/19 Unknown Rx Nicotine [Habitrol] 14 mg TD QDAY #14 patch 02/22/19 Unknown Rx Sertraline [Zoloft] 25 mg PO QDAY #30 tab 02/22/19 Unknown Rx Tamsulosin [Flomax] 0.4 mg PO QHS #30 cap 02/22/19 Unknown Rx Thiamine [Vitamin B-1] 100 mg PO QDAY #30 tablet 02/22/19 Unknown Rx hydroCHLOROthiazide [HCTZ] 25 mg PO QDAY #30 02/22/19 Unknown Rx risperiDONE [RisperDAL] 1 mg PO QHS #30 02/22/19 Unknown Rx Allergies Allergy/AdvReac Type Severity Reaction Status Date / Time No Known Allergies Allergy Unverified 03/12/13 19:44 ED Review of Systems ROS: Stated complaint: SYNCOPY Other details as noted in HPI Other: GENERAL: No weight change, fatigue, fever, chills, or night sweats SKIN: No changes in skin or hair, no itching, no rashes, no jaundice HEAD: No trauma EYES: No blurriness, tearing, itching, acute visual loss, conjunctival discoloration, or scleral icterus EARS: No hearing loss, tinnitus, vertigo, or earache NOSE: No rhinorrhea, stuffiness, sneezing, itching, or epistaxis MOUTH: No bleeding gums, hoarseness, sore throat, or swelling CARDIAC: No new murmur, chest pain, palpitations, dyspnea on exertion, orthopnea, PND, or edema RESPIRATORY: No shortness of breath, wheeze, cough, sputum production, hemoptysis GI: No abdominal pain, nausea, vomiting, dysphagia, diarrhea, constipation, hematemesis, melena, hematochezia URINARY: No frequency, urgency, polyuria, dysuria, hematuria, or incontinence MUSCULOSKELETAL: No muscle weakness, joint stiffness, decrease in range of motion, redness, swelling NEUROLOGIC: Dizziness, seizure. No headache, syncope, loss of sensation, numbness, tingling, tremors, weakness, paralysis. HEMATOLOGIC: No anemia, easy bruising, bleeding, petechiae, or purpura ENDOCRINE: No hot or cold intolerance, sweating, polyuria, polydipsia or, po lyphagia no thyroid problems PSYCHIATRIC: No change in mood, no anxiety, no depression ED Past Medical Hx - Past Medical History Hx Hypertension: Yes Hx CVA: No Hx Heart Attack/AMI: No Hx Congestive Heart Failure: No Hx Diabetes: No Hx Deep Vein Thrombosis: No Hx Pulmonary Embolism: No Hx GERD: No Hx Liver Disease: No Hx Renal Disease: No Hx Sickle Cell Disease: No Hx Arthritis: No Hx Headaches / Migraines: No Hx Seizures: No Hx Kidney Stones: No Hx Psychiatric Treatment: No Hx Asthma: No Hx COPD: No Hx Tuberculosis: No Hx Dementia: No Hx HIV: No Additional medical history: high cholesterol - Surgical History Hx Coronary Stent: No Hx Open Heart Surgery: No Hx Pacemaker: No Hx Internal Defibrillator: No Hx Cholecystectomy: No Hx Appendectomy: No Hx Breast Surgery: No Additional Surgical History: Abscess removed - Social History Smoking Status: Current Every Day Smoker Substance Use Type: Alcohol - Medications Home Medications: Home Medications Medication Instructions Recorded Confirmed Last Taken Type Acetaminophen [Acetaminophen TAB] 1 tab PO Q4H PRN #15 tablet 02/22/19 Unknown Rx Apixaban [Eliquis] 1 dose PO Q12HR #60 tablet 02/22/19 Unknown Rx Aspirin [Aspirin BABY CHEW TAB] 81 mg PO QDAY #30 tab.chew 02/22/19 Unknown Rx AtorvaSTATin [Lipitor] 40 mg PO QHS #30 tablet 02/22/19 Unknown Rx Docusate Sodium [Colace CAP] 100 mg PO BID #60 capsule 02/22/19 Unknown Rx Folic Acid [Folvite] 1 mg PO QDAY #30 tablet 02/22/19 Unknown Rx Losartan [Cozaar] 25 mg PO QDAY #30 02/22/19 Unknown Rx Nicotine [Habitrol] 14 mg TD QDAY #14 patch 02/22/19 Unknown Rx Sertraline [Zoloft] 25 mg PO QDAY #30 tab 02/22/19 Unknown Rx Tamsulosin [Flomax] 0.4 mg PO QHS #30 cap 02/22/19 Unknown Rx Thiamine [Vitamin B-1] 100 mg PO QDAY #30 tablet 02/22/19 Unknown Rx hydroCHLOROthiazide [HCTZ] 25 mg PO QDAY #30 02/22/19 Unknown Rx risperiDONE [RisperDAL] 1 mg PO QHS #30 02/22/19 Unknown Rx ED Physical Exam - General Limitations: No Limitations - Other Other exam information: GENERAL: Patient in no acute distress HEAD: Normocephalic, atraumatic EYES: PERRLA, EOM intact, no scleral icterus, no conjunctival hemorrhage, visual aguiar and acuity wnl NOSE: No tenderness, discharge, sinus tenderness MOUTH: No erythema, bleeding, exudate HEART: Regular rate and rhythm, no murmur, S1-S2 are auscultated, no edema, pulses are symmetric LUNGS: No respiratory distress. Bilateral breath sounds, No tachypnea, No retractions, No wheezing, rales, rhonchi ABDOMEN: Normal bowel sounds, abdomen soft, no tenderness, no rebound, no guarding, no distention, no masses, no CVA tenderness MUSCULOSKELETAL: Normal joint range of motion, no redness, no swelling, no tenderness NEUROLOGIC: GCS 14, Alert and Oriented x3, Cranial nerves intact, normal sensation, normal strength, no cerebellar deficit, NIHSS 0 SKIN: Skin is warm and dry, no wounds, no rashes ED Course Vital Signs 03/15/19 12:06 Temperature 97.8 F Pulse Rate 64 Respiratory 16 Rate Blood Pressure 160/88 [Left] O2 Sat by Pulse 99 Oximetry ED Medical Decision Making - Lab Data Result diagrams: 03/15/19 12:11 03/15/19 12:11 Laboratory Results - last 24 hr 03/15/19 03/15/19 03/15/19 12:11 12:11 12:11 WBC 4.8 RBC 2.91 L Hgb 10.3 L Hct 29.5 L MCV 101 H MCH 36 H MCHC 35 H RDW 16.0 H Plt Count 396 Lymph % (Auto) 16.8 [place] % (Auto) 11.0 H Eos % (Auto) 0.6 Baso % (Auto) 0.5 Lymph # 0.8 L [place] # 0.5 Eos # 0.0 Baso # 0.0 Seg Neutrophils % 71.1 H Seg Neutrophils # 3.4 PT 14.4 INR 1.11 APTT 30.9 Sodium 122 L Potassium 4.9 Chloride 83.3 L Carbon Dioxide 24 Anion Gap 20 BUN 13 Creatinine 0.7 L Estimated GFR > 60 BUN/Creatinine Ratio 19 Glucose 93 Calcium 9.1 Magnesium 1.60 L Total Creatine Kinase Troponin T < 0.010 NT-Pro-B Natriuret Pep 458.9 Urine Color Urine Turbidity Urine pH Ur Specific [place] Urine Protein Urine Glucose (UA) Urine Ketones Urine Blood Urine Nitrite Urine Bilirubin Urine Urobilinogen Ur Leukocyte Esterase Urine WBC (Auto) Urine RBC (Auto) U Epithel Cells (Auto) Urine Mucus Urine Opiates Screen Urine Methadone Screen Ur Barbiturates Screen Ur Phencyclidine Scrn Ur Amphetamines Screen U Benzodiazepines Scrn Urine Cocaine Screen U Marijuana (THC) Screen Drugs of Abuse Note Plasma/Serum Alcohol 03/15/19 03/15/19 03/15/19 12:11 12:11 Unknown WBC RBC Hgb Hct MCV MCH MCHC RDW Plt Count Lymph % (Auto) [place] % (Auto) Eos % (Auto) Baso % (Auto) Lymph # [place] # Eos # Baso # Seg Neutrophils % Seg Neutrophils # PT INR APTT Sodium Potassium Chloride Carbon Dioxide Anion Gap BUN Creatinine Estimated GFR BUN/Creatinine Ratio Glucose Calcium Magnesium Total Creatine Kinase 87 Troponin T NT-Pro-B Natriuret Pep Urine Color Straw Urine Turbidity Clear Urine pH 7.0 Ur Specific [place] 1.010 Urine Protein <15 mg/dl Urine Glucose (UA) Neg Urine Ketones Neg Urine Blood Neg Urine Nitrite Neg Urine Bilirubin Neg Urine Urobilinogen < 2.0 Ur Leukocyte Esterase Neg Urine WBC (Auto) < 1.0 Urine RBC (Auto) 1.0 U Epithel Cells (Auto) < 1.0 Urine Mucus Few Urine Opiates Screen Urine Methadone Screen Ur Barbiturates Screen Ur Phencyclidine Scrn Ur Amphetamines Screen U Benzodiazepines Scrn Urine Cocaine Screen U Marijuana (THC) Screen Drugs of Abuse Note Plasma/Serum Alcohol < 0.01 03/15/19 Unknown WBC RBC Hgb Hct MCV MCH MCHC RDW Plt Count Lymph % (Auto) [place] % (Auto) Eos % (Auto) Baso % (Auto) Lymph # [place] # Eos # Baso # Seg Neutrophils % Seg Neutrophils # PT INR APTT Sodium Potassium Chloride Carbon Dioxide Anion Gap BUN Creatinine Estimated GFR BUN/Creatinine Ratio Glucose Calcium Magnesium Total Creatine Kinase Troponin T NT-Pro-B Natriuret Pep Urine Color Urine Turbidity Urine pH Ur Specific [place] Urine Protein Urine Glucose (UA) Urine Ketones Urine Blood Urine Nitrite Urine Bilirubin Urine Urobilinogen Ur Leukocyte Esterase Urine WBC (Auto) Urine RBC (Auto) U Epithel Cells (Auto) Urine Mucus Urine Opiates Screen Presumptive negative Urine Methadone Screen Presumptive negative Ur Barbiturates Screen Presumptive negative Ur Phencyclidine Scrn Presumptive negative Ur Amphetamines Screen Presumptive negative U Benzodiazepines Scrn Presumptive negative Urine Cocaine Screen Presumptive negative U Marijuana (THC) Screen Presumptive negative Drugs of Abuse Note Disclamer Plasma/Serum Alcohol - Radiology Data Radiology results: report reviewed - Medical Decision Making At 1348 patient comfortable. Updated with results. 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 Patient reports recently discharged from [place] where he was evaluated by Neurosurgery for similar symptoms. Plan transfer for [place] for further evaluation. Transfer center reports trauma [place] followed patient and that Dr. Baker trauma accepting physician. Critical Care Time: Yes Critical care time in (mins) excluding proc time.: 35 Critical care attestation.: If time is entered above; I have spent that time in minutes in the direct care of this critically ill patient, excluding procedure time. 35 ED Disposition Clinical Impression: Hyponatremia, Seizure, Intracranial hemorrhage Disposition: [id number] ANOTHER TYPE [facility] Is pt being admited?: No Condition: Stable Referrals: PRIMARY CARE, [Primary Care Provider] - 3-5 Days
[2019-03-15 16:14] VITALS: BP 156/86
== END 2019-03-15 16:37 | disposition other institution (70) ==
LOC: ED 10:45
DX: E87.1 Hypo-osmolality and hyponatremia (principal); I62.9 Nontraumatic intracranial hemorrhage, unspecified; I10 Essential (primary) hypertension; F17.200 Nicotine dependence, unspecified, uncomplicated; Z79.899 Other long term (current) drug therapy
CPT/HCPCS: 36415; 70450; 71045; 80048; 80307; 81001; 82550; 83735; 83880; 84484; 85025; 85610; 85730; 99291; J1953; J7030; 80320; G0480

== ENCOUNTER 2019-06-08 23:32 | Emergency (ER) | payer MEDICAID ==
[2019-06-08] MEDS ORDERED: POVIDONE-IODINE OINTMENT 28.35 GM TP SCH (23:40)
[2019-06-08] MEDS ORDERED: SODIUM CHLORIDE 0.9% IRR 500 ML BOTTLE IR ONE (23:47)
[2019-06-08] MEDS ORDERED: TETANUS,DIPH,PERTUSS(ACELL) VACCINE 0.5 ML SYRINGE IM ONE (23:47)
[2019-06-08] MEDS ORDERED: LIDOCAINE (2%) 20 MG/1 ML VIAL 20 ML MDV INFILTRATI ONE (23:47)
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
[2019-06-09 00:24] LABS: Hematocrit 33.1 % (35.5-45.6); Hemoglobin 11.5 gm/dl (11.8-15.2); Mean Corpuscular HGB Conc 35 % (32-34); Mean Corpuscular Volume 95 fl (84-94); Platelet Count 235 K/mm3 (140-440); Red Blood Count 3.49 M/mm3 (3.65-5.03); Red Cell Distribution Width 14.6 % (13.2-15.2)
--- NOTE | 2019-06-09 00:27 | XRay Report ---
RIGHT FOOT 2 VIEWS INDICATION / CLINICAL INFORMATION: Open wound right great toe. COMPARISON: None available. FINDINGS: BONES / JOINT(S): There are moderate degenerative changes involving the first metatarsophalangeal boston nt. There are mild degenerative changes involving the dorsum of the midfoot. There is a tiny spur at the insertion of the Achilles tendon on the calcaneus. I see no evidence of fracture, dislocation or destructive lesion. SOFT TISSUES: I do not identify a radiopaque foreign body. ADDITIONAL FINDINGS: None. Signer Name: Hammad Green MD Signed: 06/09/2019 12:22 AM Workstation Name: [id number]
[2019-06-09] MEDS ORDERED: NEOMY 3.5 MG/BACIT 400 UNITS/POLY B 5000 UNITS/GM OINT PACKET TP ONE ×2 (00:35→00:45)
[2019-06-09 00:38] LABS: INR 1.14 (0.87-1.13); Partial Thromboplastin Time 26.8 Sec. (24.2-36.6)
[2019-06-09 00:41] LABS: Alanine Aminotransferase 133 units/L (7-56); Albumin 3.7 g/dL (3.9-5); BUN/Creatinine Ratio 11; Blood Urea Nitrogen 10 mg/dL (9-20); Calcium 8.4 mg/dL (8.4-10.2); Hemolysis Index 8
[2019-06-09] MEDS ORDERED: SODIUM CHLORIDE 0.9% IRR 500 ML BOTTLE IR ONE (00:45)
[2019-06-09] MEDS ORDERED: POTASSIUM CHLORIDE ER 20 MEQ TAB PO ONE (00:54)
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
--- NOTE | 2019-06-09 05:18 | XRay Report ---
LEFT FOOT 2 VIEWS INDICATION / CLINICAL INFORMATION: Left great toe laceration. COMPARISON: None available. FINDINGS: BONES / JOINT(S): There are advanced degenerative changes involving the first metatarsophalangeal boston nt. I see no evidence of fracture or dislocation. SOFT TISSUES: I do not identify a radiopaque foreign body. ADDITIONAL FINDINGS: A bandage overlies the distal aspect of the great toe. Signer Name: Hammad Green MD Signed: 06/09/2019 5:14 AM Workstation Name: [id number]
[2019-06-09 06:24] VITALS: BP 143/88
[2019-06-09] MEDS ORDERED: POVIDONE-IODINE OINTMENT 28.35 GM TP ONE (23:57)
== END 2019-06-09 07:30 | disposition home or self-care (01) ==
LOC: ED 23:32
DX: S01.512A Laceration without foreign body of oral cavity, initial encounter (principal); S01.81XA Laceration without foreign body of other part of head, initial encounter; F10.129 Alcohol abuse with intoxication, unspecified; Z79.899 Other long term (current) drug therapy; X58.XXXA Exposure to other specified factors, initial encounter; Y93.89 Activity, other specified; Y92.89 Other specified places as the place of occurrence of the external cause; Y99.8 Other external cause status
CPT/HCPCS: 36415; 70450; 72125; 73620; 80053; 82550; 83735; 85027; 85610; 85730; 90471; 90715; 96365; 99284; J0690; 80320; A6250; G0480

== ENCOUNTER 2019-07-03 14:21 | Emergency (ER) | payer MEDICAID ==
[2019-07-03 14:34] VITALS: BP 147/88
--- NOTE | 2019-07-03 14:50 | Emergency Department Report ---
Suture/Staple Removal - [facility] Chief Complaint: Laceration/Recheck/Suture Stated Complaint: STICHES REMOVE Time Seen by Provider: 07/03/19 14:40 When Sutures or Janes Placed: >14 Days Ago Wound Location: Left great toe, left eyebrow and right eyebrow ED Review of Systems ROS: Stated complaint: STICHES REMOVE Other details as noted in HPI Constitutional: denies: chills, fever Eyes: denies: eye pain, eye discharge, vision change ENT: denies: ear pain, throat pain Respiratory: denies: cough, shortness of breath, wheezing Cardiovascular: denies: chest pain, palpitations Endocrine: no symptoms reported Gastrointestinal: denies: abdominal pain, nausea, diarrhea Genitourinary: denies: urgency, dysuria Musculoskeletal: denies: back pain, joint swelling, arthralgia Skin: denies: rash, lesions Neurological: denies: headache, weakness, paresthesias Psychiatric: denies: anxiety, depression Hematological/Lymphatic: denies: easy bleeding, easy bruising ED Past Medical Hx - Past Medical History Previous Medical History?: Yes Hx Hypertension: Yes Hx CVA: No Hx Heart Attack/AMI: No Hx Congestive Heart Failure: No Hx Diabetes: No Hx Deep Vein Thrombosis: No Hx Pulmonary Embolism: Yes (2019) Hx GERD: No Hx Liver Disease: No Hx Renal Disease: No Hx Sickle Cell Disease: No Hx Arthritis: Yes Hx Headaches / Migraines: No Hx Seizures: No Hx Kidney Stones: No Hx Psychiatric Treatment: No Hx Asthma: No Hx COPD: No Hx Tuberculosis: No Hx Dementia: No Hx HIV: No Additional medical history: high cholesterol, hyponatremia, brain bleed, hypomagnesemia - Surgical History Past Surgical History?: No Hx Coronary Stent: No Hx Open Heart Surgery: No Hx Pacemaker: No Hx Internal Defibrillator: No Hx Cholecystectomy: No Hx Appendectomy: No Hx Breast Surgery: No Additional Surgical History: Abscess removed - Social History Smoking Status: Current Every Day Smoker Substance Use Type: None - Medications Home Medications: Home Medications Medication Instructions Recorded Confirmed Last Taken Type Acetaminophen [Acetaminophen TAB] 1 tab PO Q4H PRN #15 tablet 02/22/19 04/21/19 Unknown Rx Aspirin [Aspirin BABY CHEW TAB] 81 mg PO QDAY #30 tab.chew 04/23/19 Unknown Rx AtorvaSTATin [Lipitor] 40 mg PO QHS #30 tablet 04/23/19 Unknown Rx Docusate Sodium [Colace CAP] 100 mg PO BID #60 capsule 04/23/19 Unknown Rx Folic Acid [Folvite] 1 mg PO QDAY #30 tablet 04/23/19 Unknown Rx Gabapentin 300 mg PO TID #90 04/23/19 Unknown Rx Tamsulosin [Flomax] 0.4 mg PO QHS #30 capsule 04/23/19 Unknown Rx Zantac 150 mg PO BID #60 04/23/19 Unknown Rx risperiDONE [RisperDAL] 1 mg PO QHS #30 tablet 04/23/19 Unknown Rx Multivitamin with Folic Acid [Cvs 400 mcg PO QDAY #30 tablet 06/09/19 Unknown Rx One Daily Essential Tablet] cephALEXin [Keflex] 500 mg PO Q12HR #14 cap 06/09/19 Unknown Rx Suture Removal Exam - Exam General: Vital signs noted. No distress. Alert and acting appropriately. Wound: No Pathologic Erythema, No Tenderness, No Drainage, No Pus, No Wound Dehiscence Other Systems: All other systems reviewed and are unremarkable. ED Course Vital Signs 07/03/19 14:34 Temperature 97.6 F Pulse Rate 71 Respiratory 20 Rate Blood Pressure 147/88 O2 Sat by Pulse 99 Oximetry - Reevaluation(s) Reevaluation #1: 07/03/19 14:50 Patient is speaking in full sentences with no signs of distress noted. ED Recheck MDM - Medical Decision Making This is a 64-year-old male that presents with suture removal. She is stable and was examined by me. Total of 11 sutures has been removed and patient tolerated well. No signs of wound dehiscence, drainage, or cellulitis. Patient was referred to Follow-up with a primary care doctor in 3-5 days or if symptoms worsen and continue return to emergency room as soon as possible. At time of discharge, the patient does not seem toxic or ill in appearance. No acute signs of distress noted. Patient agrees to discharge treatment plan of care. No further questions noted by the patient. Critical care attestation.: If time is entered above; I have spent that time in minutes in the direct care of this critically ill patient, excluding procedure time. ED Disposition Clinical Impression: Encounter for removal of sutures Disposition: DC- TO HOME OR SELFCARE Is pt being admited?: No Does the pt Need Aspirin: No Condition: Stable Instructions: Suture Removal (ED) Additional Instructions: Follow-up with a primary care doctor in 3-5 days or if symptoms worsen and continue return to emergency room as soon as possible. Referrals: PRIMARY CARE, [Referring] - 3-5 Days SHARMILA WHITLEY MD [Staff Physician] - 3-5 Days [facility] [Provider Group] - 3-5 Days
== END 2019-07-03 15:03 | disposition home or self-care (01) ==
LOC: ED 14:21
DX: Z48.02 Encounter for removal of sutures (principal)

== ENCOUNTER 2020-09-17 15:23 | Emergency (ER) | payer MEDICAID ==
[~2020-09-17 15:23] MED LIST: MIDAZOLAM 5 MG/5 ML INJ MDV IV ONE
[2020-09-17 15:56] LABS: Basophils % (Auto) 0.3 % (0.0-1.8); Eosinophils % (Auto) 0.4 % (0.0-4.3); Hematocrit 33.6 % (35.5-45.6); Hemoglobin 11.2 gm/dl (11.8-15.2); Lymphocytes # (Auto) 0.8 K/mm3 (1.2-5.4); Mean Corpuscular HGB Conc 33 % (32-34); Mean Corpuscular Volume 110 fl (84-94); Monocytes # (Auto) 0.2 K/mm3 (0.0-0.8); Monocytes % (Auto) 5.9 % (0.0-7.3); Platelet Count 141 K/mm3 (140-440); Red Blood Count 3.07 M/mm3 (3.65-5.03)
--- NOTE | 2020-09-17 16:02 | Cat Scan Report ---
CT HEAD WITHOUT CONTRAST INDICATION / CLINICAL INFORMATION: code stroke call [phone] unresponsive/cva. TECHNIQUE: All CT scans at this location are performed using CT dose reduction for ALARA by means of automated e xposure control. COMPARISON: CT 06/09/2019. FINDINGS: HEMORRHAGE: There is a huge left frontoparietal subdural hematoma measuring about 2.7 cm in greatest thickness. The hematomas of mixed attenuation which may be secondary to acute on chronic hemorrhage v ersus hyperacute subdural hematoma. There is subtle thickening of the falx suggesting the possibility of a small falcine subdural hematoma. Mass effect results in about 2.2 cm of hvju-je-rfqpe transfalc ine herniation at the level of the septum pellucidum. There is effacement of cerebrospinal fluid from the suprasellar cistern consistent with uncal herniation. CSF is absent from the superior cerebellar cistern suggesting downward herniation. EXTRA-AXIAL SPACES: Complete effacement of cortical sulci is noted over both cerebral hemispheres sec ondary to mass effect related to the huge left-sided subdural hematoma. Basilar cisterns are effaced. VENTRICULAR SYSTEM: Third ventricle is effaced. Left lateral ventricle is compressed. Right lateral v entricle is dilated and is present be trapped. CEREBRAL PARENCHYMA: No areas of abnormal brain parenchymal attenuation are identified. There is no i ndication of recent infarction. MIDLINE SHIFT OR HERNIATION: 2.2 cm of bwjf-dl-[id number] appearance. The herniation are demonstrated. In addition there is evidence of uncal herniation as described above. CEREBELLUM / BRAINSTEM: Distortion of the mesencephalon secondary to uncal herniation. MIDLINE STRUCTURES:No abnormalities of the pituitary gland or pineal region are identified. INTRACRANIAL VESSELS:No abnormalities are identified on this noncontrast head CT. ORBITS: visualized portions of the orbits have an unremarkable appearance. SOFT TISSUES of HEAD: No significant abnormality. CALVARIUM: Evaluation of bone windows reveals no abnormalities. PARANASAL SINUSES / MASTOID AIR CELLS: Visualized portions of the paranasal sinuses are free from inf lammatory mucosal disease. Mastoid air cells are normally pneumatized. ADDITIONAL FINDINGS: Patient had a normal head CT on 06/09/2019. IMPRESSION: 1. Huge left frontoparietal subdural hematoma resulting in trams-falcine and uncal herniation as desc ribed in detail above. CRITICAL RESULT: Time of Discovery (FELTING MACHINE OPERATOR HELPER/CDT): 1444 hours Central standard time Time of Communication (FELTING MACHINE OPERATOR HELPER/CDT): 1448 hours Central standard time Licensed Practitioner Receiving Report: Dr. Rommel Cardenas of the [facility] emerge ncy department. Read-Back Performed: Yes. Signer Name: Mohit Leahy MD Signed: 09/17/2020 3:58 PM Workstation Name: [id number]
[2020-09-17 16:05] LABS: INR 1.05 (0.87-1.13)
--- NOTE | 2020-09-17 16:05 | Emergency Department Report ---
ED General Adult HPI - General Stated complaint: CVA Time Seen by Provider: 09/17/20 15:29 Source: EMS - History of Present Illness Initial comments: Patient presents to the emergency department via EMS for unresponsiveness. Per EMS patient's states that she heard him fall in the house and when she went to check on him he was unresponsive. Upon EMS arrival the patient was having sonorous respirations with O2 sats in the 70s. Patient was placed on nonrebreather. Patient arrived to the emergency department without c-collar or spinal precautions. -: Sudden Location: head Consistency: constant Improves with: none Worsens with: none Associated Symptoms: denies other symptoms Treatments Prior to Arrival: none - Related Data Previous Rx's Medication Instructions Recorded Last Taken Type Acetaminophen [Acetaminophen TAB] 1 tab PO Q4H PRN #15 tablet 02/22/19 Unknown Rx Aspirin [Aspirin BABY CHEW TAB] 81 mg PO QDAY #30 tab.chew 04/23/19 Unknown Rx AtorvaSTATin [Lipitor] 40 mg PO QHS #30 tablet 04/23/19 Unknown Rx Docusate Sodium [Colace CAP] 100 mg PO BID #60 capsule 04/23/19 Unknown Rx Folic Acid [Folvite] 1 mg PO QDAY #30 tablet 04/23/19 Unknown Rx Gabapentin 300 mg PO TID #90 04/23/19 Unknown Rx Tamsulosin [Flomax] 0.4 mg PO QHS #30 capsule 04/23/19 Unknown Rx Zantac 150 mg PO BID #60 04/23/19 Unknown Rx risperiDONE [RisperDAL] 1 mg PO QHS #30 tablet 04/23/19 Unknown Rx Multivitamin with Folic Acid [Cvs 400 mcg PO QDAY #30 tablet 06/09/19 Unknown Rx One Daily Essential Tablet] cephALEXin [Keflex] 500 mg PO Q12HR #14 cap 06/09/19 Unknown Rx Allergies Allergy/AdvReac Type Severity Reaction Status Date / Time No Known Allergies Allergy Verified 04/22/19 06:45 ED Review of Systems ROS: Stated complaint: CVA Other details as noted in HPI Comment: Unobtainable due to pts medical conditions ED Past Medical Hx - Past Medical History Hx Hypertension: Yes Hx CVA: No Hx Heart Attack/AMI: No Hx Congestive Heart Failure: No Hx Diabetes: No Hx Deep Vein Thrombosis: No Hx Pulmonary Embolism: Yes (2018) Hx GERD: No Hx Liver Disease: No Hx Renal Disease: No Hx Sickle Cell Disease: No Hx Arthritis: Yes Hx Headaches / Migraines: No Hx Seizures: No Hx Kidney Stones: No Hx Psychiatric Treatment: No Hx Asthma: No Hx COPD: No Hx Tuberculosis: No Hx Dementia: No Hx HIV: No Additional medical history: high cholesterol, hyponatremia, brain bleed, hypomagnesemia - Surgical History Hx Coronary Stent: No Hx Open Heart Surgery: No Hx Pacemaker: No Hx Internal Defibrillator: No Hx Cholecystectomy: No Hx Appendectomy: No Hx Breast Surgery: No Additional Surgical History: Abscess removed - Social History Smoking Status: Current Every Day Smoker Substance Use Type: None - Medications Home Medications: Home Medications Medication Instructions Recorded Confirmed Last Taken Type Acetaminophen [Acetaminophen TAB] 1 tab PO Q4H PRN #15 tablet 02/22/19 04/21/19 Unknown Rx Aspirin [Aspirin BABY CHEW TAB] 81 mg PO QDAY #30 tab.chew 04/23/19 Unknown Rx AtorvaSTATin [Lipitor] 40 mg PO QHS #30 tablet 04/23/19 Unknown Rx Docusate Sodium [Colace CAP] 100 mg PO BID #60 capsule 04/23/19 Unknown Rx Folic Acid [Folvite] 1 mg PO QDAY #30 tablet 04/23/19 Unknown Rx Gabapentin 300 mg PO TID #90 04/23/19 Unknown Rx Tamsulosin [Flomax] 0.4 mg PO QHS #30 capsule 04/23/19 Unknown Rx Zantac 150 mg PO BID #60 04/23/19 Unknown Rx risperiDONE [RisperDAL] 1 mg PO QHS #30 tablet 04/23/19 Unknown Rx Multivitamin with Folic Acid [Cvs 400 mcg PO QDAY #30 tablet 06/09/19 Unknown Rx One Daily Essential Tablet] cephALEXin [Keflex] 500 mg PO Q12HR #14 cap 06/09/19 Unknown Rx ED Physical Exam - General General appearance: obtunded - Head Head exam: Present: other (Obvious injury to the left parietal region of the scalp) - Eye Eye exam: Present: other (Dilated pupil left side ) - ENT ENT exam: Present: mucous membranes moist - Neck Neck exam: Present: other (No obvious deformity on exam) - Respiratory Respiratory exam: Present: other (Sonorous respirations) - Cardiovascular Cardiovascular Exam: Present: tachycardia - GI/Abdominal GI/Abdominal exam: Present: soft. Absent: distended - Extremities Exam Extremities exam: Absent: pedal edema - Back Exam Back exam: Present: normal inspection - Neurological Exam Neurological exam: Present: other (GCS of 5 eyes: 1 verbal: 2 motor: 2) - Psychiatric Psychiatric exam: Present: other (Not able to assess due to the patient's condition) - Skin Skin exam: Present: warm, dry, intact, normal color. Absent: rash ED Course Vital Signs 09/17/20 09/17/20 09/17/20 15:50 16:00 16:21 Pulse Rate 55 L 67 61 Respiratory 10 L 26 H Rate Blood Pressure 130/78 130/78 O2 Sat by Pulse 94 100 Oximetry - Intubation Time Out Performed: Yes Sedative: none Laryngoscope: Cynthia Size: 3 Assist Device Used: other ([place] scope) ET Tube Size: 7.5 Tube Secured Depth (cm): 24 Tube Secured Location: lips Tube Placement Confirmation: visualized tube passing t, equal breath sounds bilat, no breath sounds over epi, confirmation by capnometr Patient Tolerated Procedure: well Intubation Complications: none Additional Comments: Patient was in full C-spine precautions during procedure ED Medical Decision Making - Lab Data Result diagrams: 09/17/20 15:48 09/17/20 15:48 Lab Results 09/17/20 Range/Units 15:48 WBC 4.2 L (4.5-11.0) K/mm3 RBC 3.07 L (3.65-5.03) M/mm3 Hgb 11.2 L (11.8-15.2) gm/dl Hct 33.6 L (35.5-45.6) % MCV 110 H (84-94) fl MCH 37 H (28-32) pg MCHC 33 (32-34) % RDW 15.0 (13.2-15.2) % Plt Count 141 (140-440) K/mm3 Lymph % (Auto) 20.0 (13.4-35.0) % [place] % (Auto) 5.9 (0.0-7.3) % Eos % (Auto) 0.4 (0.0-4.3) % Baso % (Auto) 0.3 (0.0-1.8) % Lymph # (Auto) 0.8 L (1.2-5.4) K/mm3 [place] # (Auto) 0.2 (0.0-0.8) K/mm3 Eos # (Auto) 0.0 (0.0-0.4) K/mm3 Baso # (Auto) 0.0 (0.0-0.1) K/mm3 Seg Neutrophils % 73.4 H (40.0-70.0) % Seg Neutrophils # 3.1 (1.8-7.7) K/mm3 - EKG Data -: EKG Interpreted by Me EKG shows normal: sinus rhythm Rate: normal - Radiology Data Radiology results: report reviewed - Medical Decision Making Patient was immediately intubated upon arrival Code stroke initiated Evaluation of the patient CT shows a subdural hematoma on the left side Contacted [facility] for transfer Patient accepted at 3:[address] Anderson Patient was hyperventilated, mannitol given, hypertonic saline given Critical Care Time: Yes Critical care time in (mins) excluding proc time.: 35 Critical care attestation.: If time is entered above; I have spent that time in minutes in the direct care of this critically ill patient, excluding procedure time. ED Disposition Clinical Impression: Subdural hematoma, Respiratory failure after trauma Disposition: DC/TX-70 ANOTHER TYPE HLTHCARE Is pt being admited?: No Does the pt Need Aspirin: No Condition: Stable Referrals: PRIMARY CARE, [Primary Care Provider] - 3-5 Days
[2020-09-17 16:06] LABS: Partial Thromboplastin Time 25.2 Sec. (24.2-36.6)
[2020-09-17 16:10] VITALS: BP 130/78
--- NOTE | 2020-09-17 16:11 | Cat Scan Report ---
CT CERVICAL SPINE WITHOUT CONTRAST INDICATION / CLINICAL INFORMATION: unresponsive/cva. TECHNIQUE: Axial CT images were obtained through the cervical spine. Sagittal and coronal reformatted images wer e produced. All CT scans at this location are performed using CT dose reduction for ALARA by means of automated exposure control. COMPARISON: CT cervical spine 07/06/2019 and CTA chest 04/21/2019 FINDINGS: ALIGNMENT: Normal alignment is maintained throughout the cervical region. VERTEBRAE: There is no indication of fracture or bone destruction. Incidental note is made of a verte bral pneumatocele near the superior endplate of T1. DISC SPACES: Near-complete loss of disc height is noted at the C5-6, C6-7 and C7-T1 levels secondary to advanced degenerative disc disease. Degenerative changes: Facet and uncovertebral arthropathy contribute to multifocal neuroforaminal dominga nosis. There is no indication of central canal stenosis. CRANIOCERVICAL JUNCTION:No significant abnormality. SPINAL CANAL: Central spinal canal is adequately maintained throughout. PARASPINAL SOFT TISSUES: No significant abnormality. ADDITIONAL FINDINGS: None. LUNG APICES: Left worse than right consolidation being parenchymal infiltrates are observed at the caridad ng apices. Consider possible aspiration pneumonia. These are new findings in person a prior study. IMPRESSION: 1. Widespread cervical spondylosis. 2. No indication of fracture or traumatic subluxation. 3. Interval development of bilateral apical infiltrates (left worse than right). Consider possible as piration pneumonia. Further evaluation with CT chest is suggested when the patient's condition permit s. Signer Name: Mohit Leahy MD Signed: 09/17/2020 4:07 PM Workstation Name: [id number]
[2020-09-17 16:22] LABS: Bilirubin,Urine NEG (Negative); Blood,Urine MOD (Negative); Color,Urine Yellow (Yellow); Urobilinogen,Urine < 2.0 mg/dL (<2.0); WBC,Urine < 1.0 /HPF (0.0-6.0)
[2020-09-17] MEDS ORDERED: SODIUM CHLORIDE 0.9% 1000 ML 1,000 ML IV ONE ×2 (16:23→16:25)
[2020-09-17 16:30] LABS: Amphetamine Screen,Urine Negative; Benzodiazepines Screen,Urine Negative; Cannabinoid Screen,Urine Negative; Cocaine Screen,Urine Negative; Methadone Screen,Urine Negative; Opiate Screen,Urine Negative
[2020-09-17 16:31] LABS: Alanine Aminotransferase 63 units/L (7-56); Albumin 4.2 g/dL (3.9-5); Blood Urea Nitrogen 10 mg/dL (9-20); Calcium 8.7 mg/dL (8.4-10.2); Hemolysis Index 1
[2020-09-17 16:33] LABS: BUN/Creatinine Ratio 17
--- NOTE | 2020-09-17 16:34 | XRay Report ---
CHEST 1 VIEW 09/17/2020 4:10 PM INDICATION / CLINICAL INFORMATION: intubation. COMPARISON: None available. FINDINGS: SUPPORT DEVICES: There is an endotracheal tube which terminates 4.3 cm the lourdes. There is an enteri c tube which terminates distal to the field of view and below the gastroesophageal junction. HEART / MEDIASTINUM: Normal heart size. LUNGS / PLEURA: There are central opacities throughout the lungs. No pneumothorax. ADDITIONAL FINDINGS: No significant additional findings. IMPRESSION: 1. Lines and tubes as above, no pneumothorax. Central patchy opacities which may represent pulmonary edema. Signer Name: Ariel Owens DO Signed: 09/17/2020 4:30 PM Workstation Name: [id number]
--- NOTE | 2020-09-17 16:36 | XRay Report ---
ABDOMEN 1 VIEW(S) INDICATION / CLINICAL INFORMATION: ng tube. COMPARISON: None available. FINDINGS: TUBES / LINES: NG tube in satisfactory position. BOWEL GAS PATTERN: No significant abnormality. ADDITIONAL FINDINGS: No significant additional findings. IMPRESSION: NG tube in satisfactory position. Signer Name: Martell Madera MD Signed: 09/17/2020 4:32 PM Workstation Name: [id number]
[2020-09-17] MEDS ORDERED: MANNITOL IV ONE (17:00)
[2020-09-17] MEDS ORDERED: SODIUM CHLORIDE 3% 500 ML IV ONE (17:00)
--- NOTE | 2020-09-18 09:49 | Electrocardiograph Report ---
[facility] Test Date: 2020-09-17 Test Time: 15:58:37 Pat Name: ROB ENGLISH Department: Room: Gender: M Financial Intern: EUSEBIO : 1955 Requested By: BURT OAKLEY Order Number: [id number] Reading MD: Davion Clayton Measurements Intervals [place] Run Rate: 91 P: 71 MN: 126 QRS: 95 QRSD: 102 T: 56 QT: 403 QTc: 498 Interpretive Statements Sinus rhythm Right axis deviation Consider left ventricular hypertrophy Abnrm T, consider ischemia, anterolateral lds No previous ECG available for comparison Electronically Signed On 09-18-2020 9:48:47 EDT by Davion Clayton
== END 2020-09-17 17:20 | disposition other institution (70) ==
LOC: ED 15:23
DX: S06.5X9A Traumatic subdural hemorrhage with loss of consciousness of unspecified duration, initial encounter (principal); J96.90 Respiratory failure, unspecified, unspecified whether with hypoxia or hypercapnia; I10 Essential (primary) hypertension; M19.91 Primary osteoarthritis, unspecified site; F17.200 Nicotine dependence, unspecified, uncomplicated; Z79.899 Other long term (current) drug therapy; W19.XXXA Unspecified fall, initial encounter; Y93.89 Activity, other specified; Y92.89 Other specified places as the place of occurrence of the external cause; Y99.8 Other external cause status
CPT/HCPCS: 31500; 36415; 70450; 71045; 72125; 74018; 80053; 80307; 81001; 83735; 83880; 84100; 84484; 85025; 85610; 85730; 93005; 96360; 99291; J2150; J2250; J7030; 80320; 94002; G0480